=== PATIENT | male | born 1955 | race Caucasian/White ===

== ENCOUNTER 2017-01-18 11:05 | Inpatient (IN) | payer OTHER ==
[2017-01-18] MEDS ORDERED: VANCOMYCIN 1,000 MG in DEXTROSE 5%-WATER - 250 ML IVPB ONE (12:18)
[2017-01-18] MEDS ORDERED: PIPERACILLIN/TAZOB 3.375 GM/50 ML PRE-DOCKED IVPB ONE (12:20)
--- NOTE | 2017-01-18 12:27 | PDOC ---
History of Present Illness - General History Source: Patient, Old Records Exam Limitations: No Limitations - History of Present Illness Initial Comments: 01/18/17 12:39 The patient is a 61-year-old man, accompanied by family, with a significant past medical history of hypercholesterolemia, coronary artery disease status post stent x1,hypothyroidism, borderline diabetes mellitus, osteomyelitis of the left foot who presents to the emergency department via EMS with complaints of bilateral lower extremity pain and weakness. Patient states that his symptoms started out as a small scratch over his right lower extremity that progressively worsened into redness, swelling and draining wounds. Patient states it is difficult to be on his feet and he experiences exquisite pain. He denies experiencing any numbness or tingling sensations upon his legs. No recent fevers, chills. No other complaints. Allergies: No Known Drug Allergies Past Surgical History: Stent placement x1. Social History: No EtOH and recreational drug use. Primary Care Physician: Dr. Francois Rangel [phone] Vascular Surgeon: Dr. Keegan Wallis [phone] <Danuta Valverde - Last Filed: 01/18/17 14:37> <Basim Mendoza - Last Filed: 01/18/17 15:16> - General Chief Complaint: Wound Infection Stated Complaint: Wound Infection Time Seen by Provider: 01/18/17 12:12 Past History <Danuta Valverde - Last Filed: 01/18/17 14:37> - Past Medical History Anemia: No Asthma: No Cancer: No Cardiac Disorders: Yes (stentx 1) CVA: No COPD: No CHF: No Dementia: No Diabetes: Yes (BORDERLINE.) GI Disorders: No Disorders: No HTN: No Hypercholesterolemia: Yes Liver Disease: No Suicide Attempt (Hx): No Seizures: No Thyroid Disease: Yes (HYPO.) - Surgical History Abdominal Surgery: No Appendectomy: No Cardiac Surgery: Yes (STENT X 1.) Cholecystectomy: No Lung Surgery: No Neurologic Surgery: No Orthopedic Surgery: No - Immunization History Immunization Up to Date: Yes - Psycho/Social/Smoking Cessation Hx Anxiety: No Suicidal Ideation: No Smoking Status: No Smoking History: Former smoker Have you smoked in the past 12 months: No Number of Cigarettes Smoked Daily: 0 If you are a former smoker, when did you quit?: 1993 Information on smoking cessation initiated: No Hx Alcohol Use: No Drug/Substance Use Hx: No Substance Use Type: None Hx Substance Use Treatment: No <Basim Mendoza - Last Filed: 01/18/17 15:16> - Past Medical History Allergies/Adverse Reactions: Allergies Allergy/AdvReac Type Severity Reaction Status Date / Time No Known Allergies Allergy Verified 01/18/17 11:34 Home Medications: Ambulatory Orders Aspirin [Ecotrin] 81 mg PO DAILY 01/18/17 Atorvastatin Ca [Lipitor] 40 mg PO HS 01/18/17 Furosemide [Lasix] 40 mg PO DAILY 01/18/17 Levothyroxine [Synthroid -] 50 mcg PO DAILY 01/18/17 Multivitamins [Multivit ([facility] Formul[facility])] 1 tab PO DAILY 01/18/17 Silver Sulfadiazine [Silvadene] 1 applic TP BID 01/18/17 Tramadol HCl 50 mg PO PRN 01/18/17 Review of Systems - Review of Systems Able to Perform ROS?: Yes Comments:: 01/18/17 12:39 GENERAL/CONSTITUTIONAL: No fever or chills. No weakness. HEAD, EYES, EARS, NOSE AND THROAT: No change in vision. No ear pain or discharge. No sore throat. CARDIOVASCULAR: No chest pain or shortness of breath. RESPIRATORY: No cough, wheezing, or hemoptysis. GASTROINTESTINAL: No nausea, vomiting, diarrhea or constipation. GENITOURINARY: No dysuria, frequency, or change in urination. MUSCULOSKELETAL: Yes: Bilateral leg pain. No neck or back pain. SKIN: Yes: Bilateral leg wounds. No rash NEUROLOGIC: Yes: Bilateral leg weakness. No headache, vertigo, loss of consciousness. ENDOCRINE: No increased thirst. No abnormal weight change. HEMATOLOGIC/LYMPHATIC: No anemia, easy bleeding, or history of blood clots. ALLERGIC/IMMUNOLOGIC: No hives or skin allergy. <Danuta Valverde - Last Filed: 01/18/17 14:37> *Physical Exam - Vital Signs Last Vital Signs Temp Pulse Resp BP Pulse Ox 97.9 F 69 18 119/74 96 01/18/17 11:27 01/18/17 11:27 01/18/17 11:27 01/18/17 11:27 01/18/17 11:27 - Physical Exam Comments: 01/18/17 12:39 GENERAL: Awake, alert, and fully oriented, in no acute distress. Obese. HEAD: No signs of trauma EYES: PERRLA, EOMI, sclera anicteric, conjunctiva clear ENT: Auricles normal inspection, hearing grossly normal, nares patent, oropharynx clear without exudates. Moist mucosa NECK: Normal ROM, supple, no lymphadenopathy, JVD, or masses LUNGS: Breath sounds equal, clear to auscultation bilaterally. No wheezes, and no crackles HEART: Regular rate and rhythm, normal S1 and S2, no murmurs, rubs or gallops ABDOMEN: Soft, nontender, normoactive bowel sounds. No guarding, no rebound. No masses EXTREMITIES: Bilateral chronic lymphedema. There is erythema and drainage over the lower extremities right lower extremity worse than left lower extremity, that extends to the right dorsum. Bilateral 3+ pitting edema. Over the left lower extremity, there is a small 2 by 2 cm ulceration with surrounding erythema. NEUROLOGICAL: Cranial nerves II through XII grossly intact. Normal speech. <Danuta Valverde - Last Filed: 01/18/17 14:37> - Vital Signs Last Vital Signs Temp Pulse Resp BP Pulse Ox 97.9 F 69 18 119/74 96 01/18/17 11:27 01/18/17 11:27 01/18/17 11:27 01/18/17 11:27 01/18/17 11:27 <Basim Mendoza - Last Filed: 01/18/17 15:16> Heart Score/ECG Review #1 ECG reviewed & interpreted by me at: 14:15 01/18/17 15:13 NSR 66, no std/rosales, T wave flat avL, left axis deviation QTC 454 msec <Basim Mendoza - Last Filed: 01/18/17 15:16> ED Treatment Course - LABORATORY CBC & Chemistry Diagram: 01/18/17 12:10 01/18/17 12:10 - RADIOLOGY Radiograph Interpretation: 01/18/17 14:12 EXAM: RAD/CHEST X-RAY PORTABLE Interpreted by Dr. Rick Marsh IMPRESSION: A single lordotic seated portable frontal film of the chest reveals a normal sized heart with normal vascularity. The lung otero are clear without evidence of mass or infiltrate. The mediastinal, osseous, and soft tissue structures as visualized are normal. <Danuta Valverde - Last Filed: 01/18/17 14:37> - LABORATORY CBC & Chemistry Diagram: 01/18/17 12:10 01/18/17 12:10 - RADIOLOGY Radiology Studies Ordered: Category Date Time Status CHEST X-RAY PORTABLE* [RAD] Stat Radiology 01/18/17 12:18 Ordered <Basim Mendoza - Last Filed: 01/18/17 15:16> Medical Decision Making - Medical Decision Making 01/18/17 12:42 Case discussed with Vascular Surgeon, Dr. Keegan Wallis. 01/18/17 14:[address] Francois Rangel. Immediate response. Case was discussed. 01/18/17 14:[address] Martine Stephenson. 01/18/17 14:[address] Stephenson. <Danuta Valverde - Last Filed: 01/18/17 14:37> - Medical Decision Making 01/18/17 15:13 A portion of this note was documented by scribe services under my direction. I have reviewed the details of the note, within reason, and agree with the documentation with the following case summary and management plan written by me. Patient treated in the ED. Nursing notes are reviewed and incorporated into the medical decision-making. Vital signs reviewed. Peripheral IV access obtained by the nurse, laboratory studies are drawn and sent, reviewed and interpreted by myself. Vital Signs Temp Pulse Resp BP Pulse Ox 97.9 F 69 18 119/74 96 01/18/17 11:27 01/18/17 11:27 01/18/17 11:27 01/18/17 11:27 01/18/17 11:27 61-year-old male with history of thyroid disorder, coronary disease, lymphedema , obesity and multiple other medical problems presents with bilateral lower extremity cellulitis worse on the right than left for 2 weeks. Patient had hit both physicians. Noticed the redness started increased. Denies fevers or chills. The patient has extensive cellulitis of his anterior shins worse on the right than left. Given the complex issues of lymphedema in addition to difficulty inability secondary to pain, IV anthrax is ordered. Labs reviewed. Case is discussed with Dr. Rangel who agrees with plan for admission. case discussed with Dr. Stephenson who accepts the patient for med/surg admission. Case discussed in detail with admitting physician including history, physical exam and ancillary studies. Admitting physician has assumed care for the patient, will follow all pending diagnostics and will complete the evaluation and treatment. CBC, BMP 01/18/17 12:10 01/18/17 12:10 CMP Sodium 141 mmol/L (136-145) 01/18/17 12:10 Potassium 3.8 mmol/L (3.5-5.1) 01/18/17 12:10 Chloride 99 mmol/L (98-107) 01/18/17 12:10 Carbon Dioxide 33 mmol/L (21-32) H 01/18/17 12:10 Anion Gap 9 (8-16) 01/18/17 12:10 BUN 12 mg/dL (7-18) 01/18/17 12:10 Creatinine 1.3 mg/dL (0.7-1.3) D 01/18/17 12:10 Creat Clearance w eGFR 55.94 (>60) 01/18/17 12:10 Random Glucose 84 mg/dL (74-106) D 01/18/17 12:10 Lactic Acid 1.9 mmol/L (0.4-2.0) 01/18/17 12:10 Calcium 9.5 mg/dL (8.5-10.1) 01/18/17 12:10 Total Bilirubin 1.1 mg/dL (0.2-1.0) H D 01/18/17 12:10 AST 22 U/L (15-37) D 01/18/17 12:10 ALT 29 U/L (12-78) D 01/18/17 12:10 Alkaline Phosphatase 93 U/L (45-117) D 01/18/17 12:10 Creatine Kinase 94 IU/L (39-308) 01/18/17 12:10 Troponin I < 0.02 ng/ml (0.00-0.05) 01/18/17 12:10 C-Reactive Protein 3.1 MG/DL (0.00-0.3) H D 01/18/17 12:10 Total Protein 8.3 g/dl (6.4-8.2) H D 01/18/17 12:10 Albumin 4.0 g/dl (3.4-5.0) D 01/18/17 12:10 01/18/17 15:[address] Wallis who is aware of the patient's case. <Basim Mendoza - Last Filed: 01/18/17 15:16> *DC/Admit/Observation/Transfer - Attestations Scribe Attestion: 01/18/17 12:40 Documentation prepared by Danuta Valverde, acting as manager medical writing for Basim Mendoza MD. <Danuta Valverde - Last Filed: 01/18/17 14:37> - Discharge Dispostion Admit: Yes <Basim Mendoza - Last Filed: 01/18/17 15:16> Diagnosis at time of Disposition: Cellulitis Qualifiers: Site of cellulitis: extremity Site of cellulitis of extremity: lower extremity Laterality: unspecified laterality Qualified Code(s): L03.119 - Cellulitis of unspecified part of limb - Discharge Dispostion Condition at time of disposition: Stable - Referrals Referrals: Francois Rangel MD [Primary Care Provider] -
[2017-01-18 12:43] LABS: BASOPHIL 0.7 % (0-2.0); EOSINOPHIL 2.3 % (0-4.5); MCHC 32.6 g/dl (32.0-35.9); MEAN PLT VOLUME 8.7 fl (7.5-11.1); NEUTROPHILS 75.5 % (42.8-82.8); PLATELET COUNT 170 K/MM3 (134-434); RDW 14.8 % (11.9-15.9); WHITE BLOOD COUNT 9.1 K/mm3 (4.0-10.0)
[2017-01-18] MEDS ORDERED: VANCOMYCIN 1 GRAM (PRE-DOCKED) 250 ML IVPB ONE (12:43)
[2017-01-18] MEDS ORDERED: PIPERACILLIN/TAZOB 3.375 GM 50 ML IVPB ONE (12:44)
[2017-01-18 13:01] LABS: INR 1.12 (0.82-1.09); PROTHROMBIN TIME (PATIENT) 12.4 SEC (9.98-11.88)
[2017-01-18 13:03] LABS: ACTIVATED PTT 26.6 SECONDS (26.9-34.4)
[2017-01-18 13:17] LABS: ANION GAP 9 (8-16); BILIRUBIN,TOTAL 1.1 mg/dL (0.2-1.0); C-REACTIVE PROTEIN 3.1 MG/DL (0.00-0.3); CALCIUM 9.5 mg/dL (8.5-10.1); CO2 33 mmol/L (21-32); CREATININE 1.3 mg/dL (0.7-1.3); GLUCOSE,RANDOM 84 mg/dL (74-106); SGOT/AST 22 U/L (15-37); SGPT/ALT 29 U/L (12-78); TOT PROT 8.3 g/dl (6.4-8.2)
[2017-01-18 13:19] LABS: ALK PHOS 93 U/L (45-117); TROPONIN I < 0.02 ng/ml (0.00-0.05)
[2017-01-18 15:23] LABS: ERYTHROCYTE SEDIMENTATION RATE 56 mm/hr (0-20)
--- NOTE | 2017-01-18 20:23 | CONSULT ---
Consult Consult Specialty:: infectious diseases Reason for Consultation:: cellulitits bilateral - History of Present Illness History of Present Illness: 61-year-old man, , with a significant past medical history of hypercholesterolemia, coronary artery disease status post stent x1, hypothyroidism, borderline diabetes mellitus, osteomyelitis of the left foot who presents to the emergency department with complaints of bilateral lower extremity pain and weakness. Patient states that his symptoms started out as a small scratch over his right lower extremity that progressively worsened into redness, swelling and draining wounds. Patient states it is difficult to be on his feet and he experiences exquisite pain. He denies experiencing any numbness or tingling sensations upon his legs. No recent fevers, chills. No other complaints. patient has had this lymphatic issues since a long time and it seems he was ok with it the pain was pretty severe and that forced the patient to come to the emergency room patient has tried many things on his legs and some have helped and some have not patient currently has pain in the legs - History Source History Provided By: Patient Limitations to Obtaining History: No Limitations - Past Medical History Cardio/Vascular: Yes: CHF, HTN, Hyperlipdemia. No: AFIB, Aneurysm, Aortic Insufficiency, Aortic Stenosis, CAD, Deep Vein Thrombosis, [place], Mitral Insufficiency, Mitral Stenosis, Murmur, Pulmonary Hypertension, Other Endocrine: Yes: Diabetes Mellitus - Alcohol/Substance Use Hx Alcohol Use: No - Smoking History Smoking history: Former smoker Have you smoked in the past 12 months: No Aproximately how many cigarettes per day: 0 If you are a former smoker, when did you quit?: 1993 Home Medications - Allergies Allergies/Adverse Reactions: Allergies Allergy/AdvReac Type Severity Reaction Status Date / Time No Known Allergies Allergy Verified 01/18/17 11:34 - Home Medications Home Medications: Ambulatory Orders Aspirin [Ecotrin] 81 mg PO DAILY 01/18/17 Atorvastatin Ca [Lipitor] 40 mg PO HS 01/18/17 Furosemide [Lasix] 40 mg PO DAILY 01/18/17 Levothyroxine [Synthroid -] 50 mcg PO DAILY 01/18/17 Multivitamins [Multivit ([facility] Formulary)] 1 tab PO DAILY 01/18/17 Silver Sulfadiazine [Silvadene] 1 applic TP BID 01/18/17 Tramadol HCl 50 mg PO PRN 01/18/17 Review of Systems - Review of Systems Constitutional: reports: No Symptoms Eyes: reports: No Symptoms HENT: reports: No Symptoms Neck: reports: No Symptoms Cardiovascular: reports: No Symptoms Respiratory: reports: No Symptoms Gastrointestinal: reports: No Symptoms Musculoskeletal: reports: Other Integumentary: reports: Erythema, Lesions Neurological: reports: No Symptoms Endocrine: reports: No Symptoms Hematology/Lymphatic: reports: No Symptoms Psychiatric: reports: No Symptoms Physical Exam Vital Signs: Vital Signs Temperature 98.3 F 01/18/17 19:55 Pulse Rate 72 01/18/17 19:55 Respiratory Rate 18 01/18/17 19:55 Blood Pressure 124/76 01/18/17 19:55 O2 Sat by Pulse Oximetry (%) 97 01/18/17 19:55 Constitutional: Yes: Well Nourished, Calm, Mild Distress, Obese Eyes: Yes: Conjunctiva Clear HENT: Yes: Atraumatic Neck: Yes: Supple, Trachea Midline Cardiovascular: Yes: Regular Rate and Rhythm Respiratory: Yes: Regular, CTA Bilaterally Gastrointestinal: Yes: Normal Bowel Sounds, Soft Musculoskeletal: Yes: Other Extremities: Yes: Erythema, Other (bilateral lymphatic stasis) Integumentary: Yes: Erythema, Other Wound/Incision: Yes: Open to air, Other (patient has wounds on both legs rt side more than left) Neurological: Yes: Alert, Oriented Psychiatric: Yes: Alert, Oriented Imaging - Results Chest X-ray: Report Reviewed, Image Reviewed Assessment/Plan Bilateral lower ext lymphedema with weeping ulcers. patient with cellulitis of the rt leg open wounds both legs plan will start patient on abx wound care/vascular to see the patient patient has been following up with wound care for some time wound cx ordered will await all the results
[2017-01-18 22:07] LABS: URINE APPEARANCE CLEAR; URINE BILIRUBIN NEGATIVE (NEGATIVE); URINE COLOR YELLOW; URINE GLUCOSE (UA) NEGATIVE (NEGATIVE); URINE KETONE NEGATIVE (NEGATIVE); URINE LEUK ESTERASE NEGATIVE (NEGATIVE); URINE NITRITE NEGATIVE (NEGATIVE); URINE PROTEIN NEGATIVE (NEGATIVE); URINE UROBILINOGEN NEGATIVE E.U./dl (0.2-1.0)
[2017-01-18 22:09] LABS: URINE BLOOD 1+ (NEGATIVE)
[2017-01-18 22:10] LABS: URINE HYALINE CAST 1 /lpf; URINE MUCUS RARE; URINE RBC 2 /hpf (0-3); URINE WBC 1 /hpf (3-5)
[2017-01-19] MEDS ORDERED: traMADol HCL 50 MG TABLET ONE (00:39)
[2017-01-19] MEDS: traMADol HCL 50 MG TABLET PO PRN (00:47)
[2017-01-19] MEDS: PIPERACILLIN/TAZOB 3.375 GM 50 ML IVPB SCH ×3 (02:10→18:18)
[2017-01-19 06:43] LABS: BASOPHIL 0.5 % (0-2.0); EOSINOPHIL 2.6 % (0-4.5); MCH 30.3 pg (25.7-33.7); MCHC 32.8 g/dl (32.0-35.9); MEAN CELL VOLUME 92.3 fl (80-96); MEAN PLT VOLUME 8.9 fl (7.5-11.1); NEUTROPHILS 76.3 % (42.8-82.8); PLATELET COUNT 198 K/MM3 (134-434); RDW 14.4 % (11.9-15.9); WHITE BLOOD COUNT 9.4 K/mm3 (4.0-10.0)
[2017-01-19 07:09] LABS: ALBUMIN 3.7 g/dl (3.4-5.0); ALK PHOS 84 U/L (45-117); ANION GAP 9 (8-16); BILIRUBIN,TOTAL 1.2 mg/dL (0.2-1.0); CALCIUM 9.4 mg/dL (8.5-10.1); CO2 32 mmol/L (21-32); CREATININE 1.2 mg/dL (0.7-1.3); GLUCOSE,RANDOM 80 mg/dL (74-106); SGOT/AST 21 U/L (15-37); SGPT/ALT 27 U/L (12-78); TOT PROT 7.5 g/dl (6.4-8.2)
[2017-01-19] MEDS ORDERED: LEVOTHYROXINE NA 25 MCG TABLET (FP) ONE (08:28)
[2017-01-19] MEDS: LEVOTHYROXINE NA 50 MCG TABLET (FP) PO SCH (08:30)
[2017-01-19] MEDS ORDERED: PIPERACILLIN/TAZOB 3.375 GM 50 ML IVPB ONE (09:39)
[2017-01-19] MEDS: FUROSEMIDE 40 MG TABLET (FP) PO SCH (09:41)
[2017-01-19] MEDS: ASPIRIN COATED 81 MG TABLET.EC PO SCH (09:41)
[2017-01-19] MEDS: ENOXAPARIN NA (PORCINE) 40 MG/0.4 ML DISP.SYRIN SQ SCH (09:41)
[2017-01-19] MEDS: MULTIVITAMINS (DAILY MVI) TABLET (FP) PO SCH (09:42)
[2017-01-19] MEDS: VANCOMYCIN 1,250 MG in DEXTROSE 5%-WATER - 250 ML IVPB SCH (10:06)
--- NOTE | 2017-01-19 12:28 | CONSULT ---
Consult - Past Medical History Cardio/Vascular: Yes: CHF, HTN, Hyperlipdemia. No: AFIB, Aneurysm, Aortic Insufficiency, Aortic Stenosis, CAD, Deep Vein Thrombosis, [place], Mitral Insufficiency, Mitral Stenosis, Murmur, Pulmonary Hypertension, Other Endocrine: Yes: Diabetes Mellitus - Alcohol/Substance Use Hx Alcohol Use: No - Smoking History Smoking history: Former smoker Have you smoked in the past 12 months: No Aproximately how many cigarettes per day: 0 If you are a former smoker, when did you quit?: 1993 Home Medications - Allergies Allergies/Adverse Reactions: Allergies Allergy/AdvReac Type Severity Reaction Status Date / Time No Known Allergies Allergy Verified 01/18/17 11:34 - Home Medications Home Medications: Ambulatory Orders Aspirin [Ecotrin] 81 mg PO DAILY 01/18/17 Atorvastatin Ca [Lipitor] 40 mg PO HS 01/18/17 Furosemide [Lasix] 40 mg PO DAILY 01/18/17 Levothyroxine [Synthroid -] 50 mcg PO DAILY 01/18/17 Multivitamins [Multivit ([facility] Formul[facility])] 1 tab PO DAILY 01/18/17 Silver Sulfadiazine [Silvadene] 1 applic TP BID 01/18/17 Tramadol HCl 50 mg PO PRN 01/18/17 Physical Exam Vital Signs: Vital Signs Temperature 98.2 F 01/19/17 08:38 Pulse Rate 65 01/19/17 08:38 Respiratory Rate 18 01/19/17 08:38 Blood Pressure 119/66 01/19/17 08:38 O2 Sat by Pulse Oximetry (%) 96 01/19/17 08:38 Labs: CBC, BMP 01/19/17 05:35 01/19/17 05:35 Assessment/Plan Vascular Surgery The patient is a 61-year-old man, accompanied by family, with a significant past medical history of hypercholesterolemia, coronary artery disease status post stent x1,hypothyroidism, borderline diabetes mellitus, osteomyelitis of the left foot who presents to the emergency department via EMS with complaints of bilateral lower extremity pain and weakness. Patient states that his symptoms started out as a small scratch over his right lower extremity that progressively worsened into redness, swelling and draining wounds. Patient states it is difficult to be on his feet and he experiences exquisite pain. He denies experiencing any numbness or tingling sensations upon his legs. No recent fevers, chills. No other complaints. Allergies: No Known Drug Allergies Past Surgical History: Stent placement x1. Social History: No EtOH and recreational drug use. PE Head - NC/AT Lung - CTA Heart - RRR abd - soft,nt,nd ext - bl lower ext edema. Ulcers to right and left lower ext with slough, with weeping. A/P Bilateral lower ext lymphedema with weeping ulcers. 1. Santyl to ulcers daily 2. Please wrap legs with ibeth bandages for compression. This will help with the weeping. 3. antibiotics for cellulitis on right lower ext. Keegan Wallis DO
--- NOTE | 2017-01-19 12:44 | HP ---
Admitting History and Physical - Admission History of Present Illness: Pt is a 61 y/o male w/ PMH significant for HLD, CAD (status post stent x1), hypothyroidism, morbid obesity and borderline diabetes mellitus Pt also has a h/ o of osteomyelitis of the left foot who presented to the ER via EMS bc of lower extremity pain and weakness. Pt stated that his symptoms started out as a small scratch over his right lower extremity that progressively worsened into redness , swelling and draining wounds. Pt states it is difficult to be on his feet and he experiences exquisite pain. - Past Medical History Cardiovascular: Yes: Aortic Insufficiency, CAD, CHF, HTN, Hyperlipdemia Endocrine: Yes: Diabetes Mellitus - Past Surgical History Additional Past Surgical History: Cardiac stents - Smoking History Smoking history: Former smoker Have you smoked in the past 12 months: No Aproximately how many cigarettes per day: 0 If you are a former smoker, when did you quit?: 1993 - Alcohol/Substance Use Hx Alcohol Use: No Home Medications - Allergies Allergies/Adverse Reactions: Allergies Allergy/AdvReac Type Severity Reaction Status Date / Time No Known Allergies Allergy Verified 01/18/17 11:34 - Home Medications Home Medications: Ambulatory Orders Aspirin [Ecotrin] 81 mg PO DAILY 01/18/17 Atorvastatin Ca [Lipitor] 40 mg PO HS 01/18/17 Furosemide [Lasix] 40 mg PO DAILY 01/18/17 Levothyroxine [Synthroid -] 50 mcg PO DAILY 01/18/17 Multivitamins [Multivit ([facility] Formul[facility])] 1 tab PO DAILY 01/18/17 Silver Sulfadiazine [Silvadene] 1 applic TP BID 01/18/17 Tramadol HCl 50 mg PO PRN 01/18/17 Family Disease History - Family Disease History Family History: Unremarkable Review of Systems - Review of Systems Constitutional: reports: Weakness Eyes: reports: No Symptoms HENT: reports: No Symptoms Neck: reports: No Symptoms Cardiovascular: reports: No Symptoms Respiratory: reports: No Symptoms Gastrointestinal: reports: No Symptoms Musculoskeletal: reports: Muscle Weakness Physical Examination Vital Signs: Vital Signs Temperature 98.2 F 01/19/17 08:38 Pulse Rate 65 01/19/17 08:38 Respiratory Rate 18 01/19/17 08:38 Blood Pressure 119/66 01/19/17 08:38 O2 Sat by Pulse Oximetry (%) 96 01/19/17 08:38 Constitutional: Yes: Other (Morbidly obese w/ poor hygiene) Eyes: Yes: WNL HENT: Yes: WNL Neck: Yes: Supple Cardiovascular: Yes: WNL, Regular Rate and Rhythm Respiratory: Yes: WNL, Regular, CTA Bilaterally Gastrointestinal: Yes: WNL, Normal Bowel Sounds, Soft, Abdomen, Obese Musculoskeletal: Yes: Other (B/L lower extremitry ulcers/ weeping and erythema of RLE) Edema: LLE: 1+, RLE: 1+ Neurological: Yes: WNL, Alert, Oriented ...Motor Strength: WNL Labs: CBC, BMP 01/19/17 05:35 01/19/17 05:35 Problem List - Problems (1) Cellulitis Assessment/Plan: Cont IV vanco/zosyn As per ID Follow cultures Check dopplers Code(s): L03.90 - CELLULITIS, UNSPECIFIED Qualifiers: Site of cellulitis: extremity Site of cellulitis of extremity: lower extremity Laterality: unspecified laterality Qualified Code(s): L03.119 - Cellulitis of unspecified part of limb (2) Lymphedema Assessment/Plan: Vascular consult Cont lasix Code(s): I89.0 - LYMPHEDEMA, NOT ELSEWHERE CLASSIFIED (3) Diabetes Assessment/Plan: Will check HgA1c Controlled by diet Code(s): E11.9 - TYPE 2 DIABETES MELLITUS WITHOUT COMPLICATIONS (4) Hypothyroid Assessment/Plan: Cont levotyhroxine Check TSH Code(s): E03.9 - HYPOTHYROIDISM, UNSPECIFIED Qualifiers: Hypothyroidism type: other Qualified Code(s): E03.8 - Other specified hypothyroidism; E06.3 - Autoimmune thyroiditis (5) HLD (hyperlipidemia) Assessment/Plan: Cont lipitor Code(s): E78.5 - HYPERLIPIDEMIA, UNSPECIFIED (6) Morbid obesity Code(s): E66.01 - MORBID (SEVERE) OBESITY DUE TO EXCESS CALORIES (7) CAD (coronary atherosclerotic disease) Code(s): I25.10 - ATHSCL HEART DISEASE OF [place] CORONARY ARTERY W/O ANG PCTRS
--- NOTE | 2017-01-19 14:40 | EKG ---
Test Reason : Blood Pressure : / mmHG Vent. Rate : 066 BPM Atrial Rate : 066 BPM P-R Int : 198 ms QRS Dur : 104 ms QT Int : 434 ms P-R-T Axes : 061 -38 039 degrees QTc Int : 454 ms NORMAL SINUS RHYTHM LEFT AXIS DEVIATION ABNORMAL ECG WHEN COMPARED WITH ECG OF 02-MAY-2015 15:42, NO SIGNIFICANT CHANGE WAS FOUND Confirmed by KISHA ASCENCIO MD ([id number]) on 01/19/2017 2:40:37 PM Referred By: Confirmed By:KISHA ASCENCIO MD
[2017-01-19] MEDS: COLLAGENASE CLOSTRIDIUM HIST. 30 GRAMS TUBE TP SCH (14:51)
--- NOTE | 2017-01-19 16:03 | PN ---
Progress Note, Physician History of Present Illness: feels better wound draining legs looking good pain still present - Current Medication List Current Medications: Active Medications Aspirin (Ecotrin -) 81 mg PO DAILY [facility] Last Admin: 01/19/17 09:41 Dose: 81 mg Collagenase (Santyl -) 1 applic TP DAILY [facility] Last Admin: 01/19/17 14:51 Dose: Not Given Enoxaparin Sodium (Lovenox -) 40 mg SQ DAILY [facility] Last Admin: 01/19/17 09:41 Dose: 40 mg Furosemide (Lasix -) 40 mg PO DAILY [facility] Last Admin: 01/19/17 09:41 Dose: 40 mg Vancomycin HCl 1,250 mg/ (Dextrose) 250 mls @ 166.667 mls/hr IVPB DAILY [facility] PRN Reason: Protocol Last Admin: 01/19/17 10:06 Dose: 166.667 mls/hr Piperacillin Sod/Tazobactam Sod (Zosyn 3.375gm Ivpb (Pre-Docked)) 50 mls @ 100 mls/hr IVPB Q8H-IV [facility] PRN Reason: Protocol Last Admin: 01/19/17 09:41 Dose: 100 mls/hr Levothyroxine Sodium (Synthroid -) 50 mcg PO AM [facility] Last Admin: 01/19/17 08:30 Dose: 50 mcg Multivitamins/Minerals/Vitamin C (Tab-A-Vit -) 1 tab PO DAILY [facility] Last Admin: 01/19/17 09:42 Dose: 1 tab Tramadol HCl (Ultram -) 50 mg PO BID PRN Last Admin: 01/19/17 00:47 Dose: 50 mg - Objective Vital Signs: Vital Signs Temperature 98.2 F 01/19/17 08:38 Pulse Rate 65 01/19/17 08:38 Respiratory Rate 18 01/19/17 08:38 Blood Pressure 119/66 01/19/17 08:38 O2 Sat by Pulse Oximetry (%) 96 01/19/17 08:38 Constitutional: Yes: Calm, Mild Distress, Obese Cardiovascular: Yes: Regular Rate and Rhythm Respiratory: Yes: Regular, CTA Bilaterally Gastrointestinal: Yes: Normal Bowel Sounds, Soft Musculoskeletal: Yes: Other Extremities: Yes: Other Neurological: Yes: Alert, Oriented Psychiatric: Yes: Alert, Oriented Labs: CBC, BMP 01/19/17 05:35 06/20/17 05:35 INR, PTT INR 1.12 (0.82-1.09) 01/18/17 12:10 Assessment/Plan Bilateral lower ext lymphedema with weeping ulcers. patient with cellulitis of the rt leg open wounds both legs plan continue abx vascular note noted elevation of the legs monitor
[2017-01-19 16:18] VITALS: BMI 44.1
[2017-01-20] MEDS: traMADol HCL 50 MG TABLET PO PRN ×3 (00:03→22:25)
[2017-01-20] MEDS: PIPERACILLIN/TAZOB 3.375 GM 50 ML IVPB SCH ×3 (02:50→19:07)
[2017-01-20] MEDS: LEVOTHYROXINE NA 50 MCG TABLET (FP) PO SCH (05:59)
[2017-01-20] MEDS: FUROSEMIDE 40 MG TABLET (FP) PO SCH (10:07)
[2017-01-20] MEDS: MULTIVITAMINS (DAILY MVI) TABLET (FP) PO SCH (10:07)
[2017-01-20] MEDS: ASPIRIN COATED 81 MG TABLET.EC PO SCH (10:07)
[2017-01-20] MEDS: ENOXAPARIN NA (PORCINE) 40 MG/0.4 ML DISP.SYRIN SQ SCH (10:07)
[2017-01-20] MEDS: COLLAGENASE CLOSTRIDIUM HIST. 30 GRAMS TUBE TP SCH (10:08)
--- NOTE | 2017-01-20 10:34 | PN ---
Progress Note (short form) - Note Progress Note: Vascular surgery Pt seen and examined. Bilateral lower ext lymphedema with venous stasis. Pt has cellulitis with weeping. Leg elevation. IV antibiotics. Will need ibeth for compression. Keegan Wallis DO
[2017-01-20] MEDS: VANCOMYCIN 1,250 MG in DEXTROSE 5%-WATER - 250 ML IVPB SCH (11:12)
--- NOTE | 2017-01-20 14:23 | PN ---
Progress Note, Physician History of Present Illness: patient doing well no complaints rt leg in dressing all wound cx are pending - Current Medication List Current Medications: Active Medications Aspirin (Ecotrin -) 81 mg PO DAILY [facility] Last Admin: 01/20/17 10:07 Dose: 81 mg Collagenase (Santyl -) 1 applic TP DAILY [facility] Last Admin: 01/20/17 10:08 Dose: 1 applic Enoxaparin Sodium (Lovenox -) 40 mg SQ DAILY [facility] Last Admin: 01/20/17 10:07 Dose: 40 mg Furosemide (Lasix -) 40 mg PO DAILY [facility] Last Admin: 01/20/17 10:07 Dose: 40 mg Vancomycin HCl 1,250 mg/ (Dextrose) 250 mls @ 166.667 mls/hr IVPB DAILY [facility] PRN Reason: Protocol Last Admin: 01/20/17 11:12 Dose: 166.667 mls/hr Piperacillin Sod/Tazobactam Sod (Zosyn 3.375gm Ivpb (Pre-Docked)) 50 mls @ 100 mls/hr IVPB Q8H-IV [facility] PRN Reason: Protocol Last Admin: 01/20/17 10:07 Dose: 100 mls/hr Levothyroxine Sodium (Synthroid -) 50 mcg PO AM [facility] Last Admin: 01/20/17 05:59 Dose: 50 mcg Multivitamins/Minerals/Vitamin C (Tab-A-Vit -) 1 tab PO DAILY [facility] Last Admin: 01/20/17 10:07 Dose: 1 tab Tramadol HCl (Ultram -) 50 mg PO BID PRN Last Admin: 01/20/17 10:07 Dose: 50 mg - Objective Vital Signs: Vital Signs Temperature 98.5 F 01/20/17 09:00 Pulse Rate 78 01/20/17 09:00 Respiratory Rate 20 01/20/17 09:00 Blood Pressure 137/74 01/20/17 09:00 O2 Sat by Pulse Oximetry (%) 96 01/20/17 09:00 Constitutional: Yes: No Distress, Calm, Obese Cardiovascular: Yes: Regular Rate and Rhythm Respiratory: Yes: Regular, CTA Bilaterally Gastrointestinal: Yes: Normal Bowel Sounds, Soft Musculoskeletal: Yes: Other Extremities: Yes: Other Wound/Incision: Yes: Other (rt leg in dressing left leg resolved) Neurological: Yes: Alert, Oriented Psychiatric: Yes: Alert, Oriented Labs: CBC, BMP 01/19/17 05:35 01/19/17 05:35 INR, PTT INR 1.12 (0.82-1.09) 01/18/17 12:10 Assessment/Plan Bilateral lower ext lymphedema with weeping ulcers. patient with cellulitis of the rt leg open wounds both legs plan continue abx wound care await for cx report rest as per primary team
--- NOTE | 2017-01-20 21:22 | PN ---
Progress Note, Physician History of Present Illness: No new complaint - Current Medication List Current Medications: Active Medications Aspirin (Ecotrin -) 81 mg PO DAILY [facility] Last Admin: 01/20/17 10:07 Dose: 81 mg Collagenase (Santyl -) 1 applic TP DAILY [facility] Last Admin: 01/20/17 10:08 Dose: 1 applic Enoxaparin Sodium (Lovenox -) 40 mg SQ DAILY [facility] Last Admin: 01/20/17 10:07 Dose: 40 mg Furosemide (Lasix -) 40 mg PO DAILY [facility] Last Admin: 01/20/17 10:07 Dose: 40 mg Vancomycin HCl 1,250 mg/ (Dextrose) 250 mls @ 166.667 mls/hr IVPB DAILY [facility] PRN Reason: Protocol Last Admin: 01/20/17 11:12 Dose: 166.667 mls/hr Piperacillin Sod/Tazobactam Sod (Zosyn 3.375gm Ivpb (Pre-Docked)) 50 mls @ 100 mls/hr IVPB Q8H-IV [facility] PRN Reason: Protocol Last Admin: 01/20/17 19:07 Dose: 100 mls/hr Levothyroxine Sodium (Synthroid -) 50 mcg PO AM [facility] Last Admin: 01/20/17 05:59 Dose: 50 mcg Multivitamins/Minerals/Vitamin C (Tab-A-Vit -) 1 tab PO DAILY [facility] Last Admin: 01/20/17 10:07 Dose: 1 tab Tramadol HCl (Ultram -) 50 mg PO BID PRN Last Admin: 01/20/17 10:07 Dose: 50 mg - Objective Vital Signs: Vital Signs Temperature 97.6 F 01/20/17 15:46 Pulse Rate 72 01/20/17 15:46 Respiratory Rate 16 01/20/17 15:46 Blood Pressure 112/62 01/20/17 15:46 O2 Sat by Pulse Oximetry (%) 96 01/20/17 09:00 Constitutional: Yes: Well Nourished Eyes: Yes: WNL HENT: Yes: WNL Neck: Yes: Supple Cardiovascular: Yes: WNL, Regular Rate and Rhythm Respiratory: Yes: WNL, Regular, CTA Bilaterally Gastrointestinal: Yes: WNL, Normal Bowel Sounds, Soft, Abdomen, Obese Musculoskeletal: Yes: Other ((+) lymphedema (+) weeping ulcers) Labs: CBC, BMP 01/19/17 05:35 01/19/17 05:35 INR, PTT INR 1.12 (0.82-1.09) 01/18/17 12:10 Problem List - Problems (1) Cellulitis Assessment/Plan: Cont IV vanco/zosyn As per ID Dopplers were negative for DVT Code(s): L03.90 - CELLULITIS, UNSPECIFIED Qualifiers: Site of cellulitis: extremity Site of cellulitis of extremity: lower extremity Laterality: unspecified laterality Qualified Code(s): L03.119 - Cellulitis of unspecified part of limb (2) Lymphedema Assessment/Plan: Cont lasix Code(s): I89.0 - LYMPHEDEMA, NOT ELSEWHERE CLASSIFIED (3) Diabetes Assessment/Plan: Will check HgA1c Controlled by diet Code(s): E11.9 - TYPE 2 DIABETES MELLITUS WITHOUT COMPLICATIONS (4) Hypothyroid Assessment/Plan: Cont levotyhroxine Check TSH Code(s): E03.9 - HYPOTHYROIDISM, UNSPECIFIED Qualifiers: Hypothyroidism type: other Qualified Code(s): E03.8 - Other specified hypothyroidism; E06.3 - Autoimmune thyroiditis (5) HLD (hyperlipidemia) Assessment/Plan: Cont lipitor Code(s): E78.5 - HYPERLIPIDEMIA, UNSPECIFIED (6) Morbid obesity Code(s): E66.01 - MORBID (SEVERE) OBESITY DUE TO EXCESS CALORIES (7) CAD (coronary atherosclerotic disease) Code(s): I25.10 - ATHSCL HEART DISEASE OF [place] CORONARY ARTERY W/O ANG PCTRS
[2017-01-21] MEDS: PIPERACILLIN/TAZOB 3.375 GM 50 ML IVPB SCH ×3 (02:08→17:26)
[2017-01-21] MEDS: LEVOTHYROXINE NA 50 MCG TABLET (FP) PO SCH (06:31)
[2017-01-21 08:17] LABS: BASOPHIL 0.8 % (0-2.0); EOSINOPHIL 4.5 % (0-4.5); MCH 30.6 pg (25.7-33.7); MCHC 33.1 g/dl (32.0-35.9); MEAN CELL VOLUME 92.5 fl (80-96); NEUTROPHILS 68.8 % (42.8-82.8); PLATELET COUNT 193 K/MM3 (134-434); RDW 14.8 % (11.9-15.9); WHITE BLOOD COUNT 7.8 K/mm3 (4.0-10.0)
[2017-01-21 08:46] LABS: ALBUMIN 3.6 g/dl (3.4-5.0); ALK PHOS 75 U/L (45-117); ANION GAP 7 (8-16); BILIRUBIN,TOTAL 0.9 mg/dL (0.2-1.0); CALCIUM 9.4 mg/dL (8.5-10.1); CO2 34 mmol/L (21-32); CREATININE 1.1 mg/dL (0.7-1.3); GLUCOSE,RANDOM 87 mg/dL (74-106); SGOT/AST 18 U/L (15-37); SGPT/ALT 30 U/L (12-78); TOT PROT 7.2 g/dl (6.4-8.2)
[2017-01-21 09:01] LABS: THYROID STIMULATING HORMONE 2.26 uIU/ml (0.358-3.74)
[2017-01-21] MEDS: COLLAGENASE CLOSTRIDIUM HIST. 30 GRAMS TUBE TP SCH (09:49)
[2017-01-21] MEDS: FUROSEMIDE 40 MG TABLET (FP) PO SCH (09:50)
[2017-01-21] MEDS: ASPIRIN COATED 81 MG TABLET.EC PO SCH (09:50)
[2017-01-21] MEDS: ENOXAPARIN NA (PORCINE) 40 MG/0.4 ML DISP.SYRIN SQ SCH (09:50)
[2017-01-21] MEDS: MULTIVITAMINS (DAILY MVI) TABLET (FP) PO SCH (09:50)
[2017-01-21] MEDS: VANCOMYCIN 1,250 MG in DEXTROSE 5%-WATER - 250 ML IVPB SCH (10:36)
--- NOTE | 2017-01-21 14:06 | PN ---
Progress Note, Physician History of Present Illness: patient says he is feeling well left leg is doing pretty well rt leg oozing a lot - Current Medication List Current Medications: Active Medications Aspirin (Ecotrin -) 81 mg PO DAILY [facility] Last Admin: 01/21/17 09:50 Dose: 81 mg Collagenase (Santyl -) 1 applic TP DAILY [facility] Last Admin: 01/21/17 09:49 Dose: 1 applic Enoxaparin Sodium (Lovenox -) 40 mg SQ DAILY [facility] Last Admin: 01/21/17 09:50 Dose: 40 mg Furosemide (Lasix -) 40 mg PO DAILY [facility] Last Admin: 01/21/17 09:50 Dose: 40 mg Piperacillin Sod/Tazobactam Sod (Zosyn 3.375gm Ivpb (Pre-Docked)) 50 mls @ 100 mls/hr IVPB Q8H-IV [facility] PRN Reason: Protocol Last Admin: 01/21/17 09:50 Dose: 100 mls/hr Levothyroxine Sodium (Synthroid -) 50 mcg PO AM [facility] Last Admin: 01/21/17 06:31 Dose: 50 mcg Multivitamins/Minerals/Vitamin C (Tab-A-Vit -) 1 tab PO DAILY [facility] Last Admin: 01/21/17 09:50 Dose: 1 tab Tramadol HCl (Ultram -) 50 mg PO BID PRN Last Admin: 01/20/17 22:25 Dose: 50 mg - Objective Vital Signs: Vital Signs Temperature 97.6 F 01/21/17 08:48 Pulse Rate 64 01/21/17 08:48 Respiratory Rate 20 01/21/17 08:48 Blood Pressure 106/62 01/21/17 08:48 O2 Sat by Pulse Oximetry (%) 97 01/21/17 09:00 Constitutional: Yes: No Distress, Calm, Obese HENT: Yes: Atraumatic Neck: Yes: Supple, Trachea Midline Cardiovascular: Yes: Regular Rate and Rhythm Respiratory: Yes: Regular, CTA Bilaterally Gastrointestinal: Yes: Normal Bowel Sounds, Soft Musculoskeletal: Yes: Other Extremities: Yes: Other (rt leg still oozing a lot) Wound/Incision: Yes: Draining (rt leg) Neurological: Yes: Alert, Oriented Labs: CBC, BMP 01/21/17 07:00 01/21/17 07:00 INR, PTT INR 1.12 (0.82-1.09) 01/18/17 12:10 Assessment/Plan Bilateral lower ext lymphedema with weeping ulcers. patient with cellulitis of the rt leg open wounds both legs plan continue abx vanco trough noted dose increased wound care
[2017-01-21] MEDS ORDERED: VANCOMYCIN 1,500 MG in DEXTROSE 5%-WATER - 250 ML IVPB SCH (14:45)
--- NOTE | 2017-01-22 00:50 | PN ---
Progress Note, Physician History of Present Illness: Pt seen and examined 01/21/17 however note is being entered now - Current Medication List Current Medications: Active Medications Aspirin (Ecotrin -) 81 mg PO DAILY [facility] Last Admin: 01/21/17 09:50 Dose: 81 mg Collagenase (Santyl -) 1 applic TP DAILY [facility] Last Admin: 01/21/17 09:49 Dose: 1 applic Enoxaparin Sodium (Lovenox -) 40 mg SQ DAILY [facility] Last Admin: 01/21/17 09:50 Dose: 40 mg Furosemide (Lasix -) 40 mg PO DAILY [facility] Last Admin: 01/21/17 09:50 Dose: 40 mg Piperacillin Sod/Tazobactam Sod (Zosyn 3.375gm Ivpb (Pre-Docked)) 50 mls @ 100 mls/hr IVPB Q8H-IV [facility] PRN Reason: Protocol Last Admin: 01/21/17 17:26 Dose: 100 mls/hr Vancomycin HCl 1,500 mg/ (Dextrose) 250 mls @ 125 mls/hr IVPB DAILY [facility] PRN Reason: Protocol Last Admin: 01/21/17 14:53 Dose: Not Given Levothyroxine Sodium (Synthroid -) 50 mcg PO AM [facility] Last Admin: 01/21/17 06:31 Dose: 50 mcg Multivitamins/Minerals/Vitamin C (Tab-A-Vit -) 1 tab PO DAILY [facility] Last Admin: 01/21/17 09:50 Dose: 1 tab Tramadol HCl (Ultram -) 50 mg PO BID PRN Last Admin: 01/20/17 22:25 Dose: 50 mg - Objective Vital Signs: Vital Signs Temperature 97.8 F 01/21/17 16:40 Pulse Rate 62 01/21/17 16:40 Respiratory Rate 20 01/21/17 16:40 Blood Pressure 131/77 01/21/17 16:40 O2 Sat by Pulse Oximetry (%) 97 01/21/17 21:00 Constitutional: Yes: Well Nourished Eyes: Yes: WNL HENT: Yes: WNL Neck: Yes: WNL, Supple Cardiovascular: Yes: WNL, Regular Rate and Rhythm Respiratory: Yes: WNL, CTA Bilaterally Gastrointestinal: Yes: WNL, Normal Bowel Sounds, Soft, Abdomen, Obese Extremities: Yes: Other Edema: LLE: 1+, RLE: 1+ Labs: CBC, BMP 01/21/17 07:00 01/21/17 07:00 INR, PTT INR 1.12 (0.82-1.09) 01/18/17 12:10 Problem List - Problems (1) Cellulitis Code(s): L03.90 - CELLULITIS, UNSPECIFIED Qualifiers: Site of cellulitis: extremity Site of cellulitis of extremity: lower extremity Laterality: unspecified laterality Qualified Code(s): L03.119 - Cellulitis of unspecified part of limb (2) Lymphedema Code(s): I89.0 - LYMPHEDEMA, NOT ELSEWHERE CLASSIFIED (3) Diabetes Code(s): E11.9 - TYPE 2 DIABETES MELLITUS WITHOUT COMPLICATIONS (4) Hypothyroid Code(s): E03.9 - HYPOTHYROIDISM, UNSPECIFIED Qualifiers: Hypothyroidism type: other Qualified Code(s): E03.8 - Other specified hypothyroidism; E06.3 - Autoimmune thyroiditis (5) HLD (hyperlipidemia) Code(s): E78.5 - HYPERLIPIDEMIA, UNSPECIFIED (6) Morbid obesity Code(s): E66.01 - MORBID (SEVERE) OBESITY DUE TO EXCESS CALORIES (7) CAD (coronary atherosclerotic disease) Code(s): I25.10 - ATHSCL HEART DISEASE OF [place] CORONARY ARTERY W/O ANG PCTRS
[2017-01-22] MEDS: PIPERACILLIN/TAZOB 3.375 GM 50 ML IVPB SCH ×3 (01:15→18:17)
[2017-01-22] MEDS: LEVOTHYROXINE NA 50 MCG TABLET (FP) PO SCH (06:20)
[2017-01-22] MEDS ORDERED: VANCOMYCIN 1,500 MG in DEXTROSE 5%-WATER - 500 ML IVPB SCH (08:34)
[2017-01-22] MEDS: MULTIVITAMINS (DAILY MVI) TABLET (FP) PO SCH (09:45)
[2017-01-22] MEDS: FUROSEMIDE 40 MG TABLET (FP) PO SCH (09:45)
[2017-01-22] MEDS: ASPIRIN COATED 81 MG TABLET.EC PO SCH (09:45)
[2017-01-22] MEDS: COLLAGENASE CLOSTRIDIUM HIST. 30 GRAMS TUBE TP SCH (09:46)
[2017-01-22] MEDS: ENOXAPARIN NA (PORCINE) 40 MG/0.4 ML DISP.SYRIN SQ SCH (09:47)
--- NOTE | 2017-01-22 14:05 | PN ---
Progress Note, Physician History of Present Illness: patient says he is feeling well left leg improving rt leg oozing but improving - Current Medication List Current Medications: Active Medications Aspirin (Ecotrin -) 81 mg PO DAILY [facility] Last Admin: 01/22/17 09:45 Dose: 81 mg Collagenase (Santyl -) 1 applic TP DAILY [facility] Last Admin: 01/22/17 09:46 Dose: 1 applic Enoxaparin Sodium (Lovenox -) 40 mg SQ DAILY [facility] Last Admin: 01/22/17 09:47 Dose: 40 mg Furosemide (Lasix -) 40 mg PO DAILY [facility] Last Admin: 01/22/17 09:45 Dose: 40 mg Piperacillin Sod/Tazobactam Sod (Zosyn 3.375gm Ivpb (Pre-Docked)) 50 mls @ 100 mls/hr IVPB Q8H-IV [facility] PRN Reason: Protocol Last Admin: 01/22/17 09:44 Dose: 100 mls/hr Levothyroxine Sodium (Synthroid -) 50 mcg PO AM [facility] Last Admin: 01/22/17 06:20 Dose: 50 mcg Multivitamins/Minerals/Vitamin C (Tab-A-Vit -) 1 tab PO DAILY [facility] Last Admin: 01/22/17 09:45 Dose: 1 tab - Objective Vital Signs: Vital Signs Temperature 97.5 F L 01/22/17 06:07 Pulse Rate 67 01/22/17 06:07 Respiratory Rate 18 01/22/17 06:07 Blood Pressure 108/66 01/22/17 06:07 O2 Sat by Pulse Oximetry (%) 97 01/21/17 21:00 Constitutional: Yes: No Distress, Calm, Obese Cardiovascular: Yes: Regular Rate and Rhythm Respiratory: Yes: Regular, CTA Bilaterally Gastrointestinal: Yes: Normal Bowel Sounds, Soft Musculoskeletal: Yes: Other Extremities: Yes: Other Integumentary: Yes: Erythema, Other Wound/Incision: Yes: Dressing Dry and Intact Neurological: Yes: Alert, Oriented Psychiatric: Yes: Alert Labs: CBC, BMP 01/21/17 07:00 01/21/17 07:00 INR, PTT INR 1.12 (0.82-1.09) 01/18/17 12:10 Assessment/Plan Bilateral lower ext lymphedema with weeping ulcers. patient with cellulitis of the rt leg open wounds both legs plan continue abx will stop vanco await for missing organism wound care
[2017-01-23] MEDS: PIPERACILLIN/TAZOB 3.375 GM 50 ML IVPB SCH ×3 (01:20→17:07)
[2017-01-23] MEDS: LEVOTHYROXINE NA 50 MCG TABLET (FP) PO SCH (06:12)
[2017-01-23] MEDS: FUROSEMIDE 40 MG TABLET (FP) PO SCH (10:33)
[2017-01-23] MEDS: ASPIRIN COATED 81 MG TABLET.EC PO SCH (10:33)
[2017-01-23] MEDS: MULTIVITAMINS (DAILY MVI) TABLET (FP) PO SCH (10:33)
[2017-01-23] MEDS: ENOXAPARIN NA (PORCINE) 40 MG/0.4 ML DISP.SYRIN SQ SCH (10:34)
[2017-01-23] MEDS: COLLAGENASE CLOSTRIDIUM HIST. 30 GRAMS TUBE TP SCH (10:34)
--- NOTE | 2017-01-23 13:18 | PN ---
Progress Note, Physician History of Present Illness: doing well no new events - Current Medication List Current Medications: Active Medications Aspirin (Ecotrin -) 81 mg PO DAILY [facility] Last Admin: 01/23/17 10:33 Dose: 81 mg Collagenase (Santyl -) 1 applic TP DAILY [facility] Last Admin: 01/23/17 10:34 Dose: 1 applic Enoxaparin Sodium (Lovenox -) 40 mg SQ DAILY [facility] Last Admin: 01/23/17 10:34 Dose: 40 mg Furosemide (Lasix -) 40 mg PO DAILY [facility] Last Admin: 01/23/17 10:33 Dose: 40 mg Piperacillin Sod/Tazobactam Sod (Zosyn 3.375gm Ivpb (Pre-Docked)) 50 mls @ 100 mls/hr IVPB Q8H-IV [facility] PRN Reason: Protocol Last Admin: 01/23/17 10:35 Dose: 100 mls/hr Levothyroxine Sodium (Synthroid -) 50 mcg PO AM [facility] Last Admin: 01/23/17 06:12 Dose: 50 mcg Multivitamins/Minerals/Vitamin C (Tab-A-Vit -) 1 tab PO DAILY [facility] Last Admin: 01/23/17 10:33 Dose: 1 tab - Objective Vital Signs: Vital Signs Temperature 99.3 F 01/23/17 06:00 Pulse Rate 74 01/23/17 06:00 Respiratory Rate 18 01/23/17 06:00 Blood Pressure 158/75 01/23/17 06:00 O2 Sat by Pulse Oximetry (%) 97 01/22/17 21:00 Constitutional: Yes: No Distress, Calm, Obese Cardiovascular: Yes: Regular Rate and Rhythm Respiratory: Yes: Regular, CTA Bilaterally Gastrointestinal: Yes: Normal Bowel Sounds, Soft Musculoskeletal: Yes: Other Extremities: Yes: Other Edema: LLE: 1+, RLE: 1+ Wound/Incision: Yes: Dressing Dry and Intact Neurological: Yes: Alert, Oriented Psychiatric: Yes: Alert, Oriented Labs: CBC, BMP 01/21/17 07:00 01/21/17 07:00 INR, PTT INR 1.12 (0.82-1.09) 01/18/17 12:10 Assessment/Plan Bilateral lower ext lymphedema with weeping ulcers. patient with cellulitis of the rt leg open wounds both legs plan continue abx continue wound care rest as per primary team will have to arrange abx for couple of more days
--- NOTE | 2017-01-24 01:16 | PN ---
Progress Note, Physician History of Present Illness: Pt seen and examined 01/23/17 however note is being entered late - Current Medication List Current Medications: Active Medications Aspirin (Ecotrin -) 81 mg PO DAILY [facility] Last Admin: 01/23/17 10:33 Dose: 81 mg Collagenase (Santyl -) 1 applic TP DAILY [facility] Last Admin: 01/23/17 10:34 Dose: 1 applic Enoxaparin Sodium (Lovenox -) 40 mg SQ DAILY [facility] Last Admin: 01/23/17 10:34 Dose: 40 mg Furosemide (Lasix -) 40 mg PO DAILY [facility] Last Admin: 01/23/17 10:33 Dose: 40 mg Piperacillin Sod/Tazobactam Sod (Zosyn 3.375gm Ivpb (Pre-Docked)) 50 mls @ 100 mls/hr IVPB Q8H-IV [facility] PRN Reason: Protocol Last Admin: 01/23/17 17:07 Dose: 100 mls/hr Levothyroxine Sodium (Synthroid -) 50 mcg PO AM [facility] Last Admin: 01/23/17 06:12 Dose: 50 mcg Multivitamins/Minerals/Vitamin C (Tab-A-Vit -) 1 tab PO DAILY [facility] Last Admin: 01/23/17 10:33 Dose: 1 tab - Objective Vital Signs: Vital Signs Temperature 97.9 F 01/23/17 17:20 Pulse Rate 68 01/23/17 17:20 Respiratory Rate 20 01/23/17 17:20 Blood Pressure 116/68 01/23/17 17:20 O2 Sat by Pulse Oximetry (%) 98 01/23/17 21:00 Constitutional: Yes: Well Nourished Eyes: Yes: WNL HENT: Yes: WNL Neck: Yes: Supple Cardiovascular: Yes: WNL, Regular Rate and Rhythm Respiratory: Yes: WNL, Regular, CTA Bilaterally Gastrointestinal: Yes: WNL, Normal Bowel Sounds, Soft, Abdomen, Obese Edema: LLE: 1+, RLE: 1+ Labs: CBC, BMP 01/21/17 07:00 01/21/17 07:00 INR, PTT INR 1.12 (0.82-1.09) 01/18/17 12:10 Problem List - Problems (1) Cellulitis Assessment/Plan: Cont IV vanco/zosyn Cont wound care Code(s): L03.90 - CELLULITIS, UNSPECIFIED Qualifiers: Site of cellulitis: extremity Site of cellulitis of extremity: lower extremity Laterality: unspecified laterality Qualified Code(s): L03.119 - Cellulitis of unspecified part of limb (2) Lymphedema Assessment/Plan: Cont lasix Code(s): I89.0 - LYMPHEDEMA, NOT ELSEWHERE CLASSIFIED (3) Diabetes Assessment/Plan: Will check HgA1c Controlled by diet Code(s): E11.9 - TYPE 2 DIABETES MELLITUS WITHOUT COMPLICATIONS (4) Hypothyroid Code(s): E03.9 - HYPOTHYROIDISM, UNSPECIFIED Qualifiers: Hypothyroidism type: other Qualified Code(s): E03.8 - Other specified hypothyroidism; E06.3 - Autoimmune thyroiditis (5) HLD (hyperlipidemia) Code(s): E78.5 - HYPERLIPIDEMIA, UNSPECIFIED (6) Morbid obesity Code(s): E66.01 - MORBID (SEVERE) OBESITY DUE TO EXCESS CALORIES (7) CAD (coronary atherosclerotic disease) Code(s): I25.10 - ATHSCL HEART DISEASE OF [place] CORONARY ARTERY W/O ANG PCTRS
[2017-01-24] MEDS: PIPERACILLIN/TAZOB 3.375 GM 50 ML IVPB SCH ×3 (01:18→17:40)
[2017-01-24] MEDS: LEVOTHYROXINE NA 50 MCG TABLET (FP) PO SCH (06:05)
[2017-01-24] MEDS: MULTIVITAMINS (DAILY MVI) TABLET (FP) PO SCH (10:09)
[2017-01-24] MEDS: ASPIRIN COATED 81 MG TABLET.EC PO SCH (10:09)
[2017-01-24] MEDS: ENOXAPARIN NA (PORCINE) 40 MG/0.4 ML DISP.SYRIN SQ SCH (10:09)
[2017-01-24] MEDS: FUROSEMIDE 40 MG TABLET (FP) PO SCH (10:09)
[2017-01-24] MEDS: COLLAGENASE CLOSTRIDIUM HIST. 30 GRAMS TUBE TP SCH (14:00)
--- NOTE | 2017-01-24 21:06 | PN ---
Progress Note, Physician History of Present Illness: No new changes - Current Medication List Current Medications: Active Medications Aspirin (Ecotrin -) 81 mg PO DAILY [facility] Last Admin: 01/24/17 10:09 Dose: 81 mg Collagenase (Santyl -) 1 applic TP DAILY [facility] Last Admin: 01/24/17 14:00 Dose: 1 applic Enoxaparin Sodium (Lovenox -) 40 mg SQ DAILY [facility] Last Admin: 01/24/17 10:09 Dose: 40 mg Furosemide (Lasix -) 40 mg PO DAILY [facility] Last Admin: 01/24/17 10:09 Dose: 40 mg Piperacillin Sod/Tazobactam Sod (Zosyn 3.375gm Ivpb (Pre-Docked)) 50 mls @ 100 mls/hr IVPB Q8H-IV [facility] PRN Reason: Protocol Last Admin: 01/24/17 17:40 Dose: 100 mls/hr Levothyroxine Sodium (Synthroid -) 50 mcg PO AM [facility] Last Admin: 01/24/17 06:05 Dose: 50 mcg Multivitamins/Minerals/Vitamin C (Tab-A-Vit -) 1 tab PO DAILY [facility] Last Admin: 01/24/17 10:09 Dose: 1 tab - Objective Vital Signs: Vital Signs Temperature 97.3 F L 01/24/17 17:25 Pulse Rate 69 01/24/17 17:25 Respiratory Rate 20 01/24/17 17:25 Blood Pressure 126/70 01/24/17 17:25 O2 Sat by Pulse Oximetry (%) 97 01/24/17 20:31 Constitutional: Yes: Well Nourished Eyes: Yes: WNL HENT: Yes: WNL Neck: Yes: WNL, Supple Cardiovascular: Yes: WNL, Regular Rate and Rhythm Respiratory: Yes: WNL, Regular, CTA Bilaterally Gastrointestinal: Yes: WNL, Normal Bowel Sounds, Soft, Abdomen, Obese Edema: LLE: 1+, RLE: 1+ Labs: CBC, BMP 01/21/17 07:00 01/21/17 07:00 INR, PTT INR 1.12 (0.82-1.09) 01/18/17 12:10 Problem List - Problems (1) Cellulitis Assessment/Plan: Cont IV vanco/zosyn Cont wound care DC planning in am to STR Will speak to ID about antibxs Code(s): L03.90 - CELLULITIS, UNSPECIFIED Qualifiers: Site of cellulitis: extremity Site of cellulitis of extremity: lower extremity Laterality: unspecified laterality Qualified Code(s): L03.119 - Cellulitis of unspecified part of limb (2) Lymphedema Assessment/Plan: Cont lasix Code(s): I89.0 - LYMPHEDEMA, NOT ELSEWHERE CLASSIFIED (3) Diabetes Assessment/Plan: HgA1c was normal Controlled by diet Code(s): E11.9 - TYPE 2 DIABETES MELLITUS WITHOUT COMPLICATIONS (4) Hypothyroid Assessment/Plan: Cont levotyhroxine Code(s): E03.9 - HYPOTHYROIDISM, UNSPECIFIED Qualifiers: Hypothyroidism type: other Qualified Code(s): E03.8 - Other specified hypothyroidism; E06.3 - Autoimmune thyroiditis (5) HLD (hyperlipidemia) Code(s): E78.5 - HYPERLIPIDEMIA, UNSPECIFIED (6) Morbid obesity Code(s): E66.01 - MORBID (SEVERE) OBESITY DUE TO EXCESS CALORIES (7) CAD (coronary atherosclerotic disease) Code(s): I25.10 - ATHSCL HEART DISEASE OF [place] CORONARY ARTERY W/O ANG PCTRS
[2017-01-25] MEDS: PIPERACILLIN/TAZOB 3.375 GM 50 ML IVPB SCH ×3 (02:21→18:27)
[2017-01-25] MEDS: LEVOTHYROXINE NA 50 MCG TABLET (FP) PO SCH (06:13)
[2017-01-25] MEDS: FUROSEMIDE 40 MG TABLET (FP) PO SCH (10:52)
[2017-01-25] MEDS: MULTIVITAMINS (DAILY MVI) TABLET (FP) PO SCH (10:52)
[2017-01-25] MEDS: ENOXAPARIN NA (PORCINE) 40 MG/0.4 ML DISP.SYRIN SQ SCH (10:53)
[2017-01-25] MEDS: ASPIRIN COATED 81 MG TABLET.EC PO SCH (10:53)
--- NOTE | 2017-01-25 11:39 | PN ---
Progress Note, Physician History of Present Illness: patient doing well rt leg healing but still draining left leg has healed well wound on rt leg healing - Current Medication List Current Medications: Active Medications Aspirin (Ecotrin -) 81 mg PO DAILY [facility] Last Admin: 01/25/17 10:53 Dose: 81 mg Collagenase (Santyl -) 1 applic TP DAILY [facility] Last Admin: 01/24/17 14:00 Dose: 1 applic Enoxaparin Sodium (Lovenox -) 40 mg SQ DAILY [facility] Last Admin: 01/25/17 10:53 Dose: 40 mg Furosemide (Lasix -) 40 mg PO DAILY [facility] Last Admin: 01/25/17 10:52 Dose: 40 mg Piperacillin Sod/Tazobactam Sod (Zosyn 3.375gm Ivpb (Pre-Docked)) 50 mls @ 100 mls/hr IVPB Q8H-IV [facility] PRN Reason: Protocol Last Admin: 01/25/17 10:52 Dose: 100 mls/hr Levothyroxine Sodium (Synthroid -) 50 mcg PO AM [facility] Last Admin: 01/25/17 06:13 Dose: 50 mcg Multivitamins/Minerals/Vitamin C (Tab-A-Vit -) 1 tab PO DAILY [facility] Last Admin: 01/25/17 10:52 Dose: 1 tab - Objective Vital Signs: Vital Signs Temperature 98.0 F 01/25/17 06:00 Pulse Rate 65 01/25/17 06:00 Respiratory Rate 18 01/25/17 06:00 Blood Pressure 108/54 01/25/17 06:00 O2 Sat by Pulse Oximetry (%) 97 01/24/17 20:31 Constitutional: Yes: No Distress, Calm Cardiovascular: Yes: Regular Rate and Rhythm Respiratory: Yes: Regular, CTA Bilaterally Gastrointestinal: Yes: Normal Bowel Sounds, Soft Musculoskeletal: Yes: Other Extremities: Yes: Other (rt leg still draianing left leg much better) Integumentary: Yes: Erythema, Other Wound/Incision: Yes: Dressing Removed, Other (wounds looked at) Psychiatric: Yes: Alert, Oriented Labs: CBC, BMP 01/21/17 07:00 01/21/17 07:00 INR, PTT INR 1.12 (0.82-1.09) 01/18/17 12:10 Assessment/Plan Bilateral lower ext lymphedema with weeping ulcers. patient with cellulitis of the rt leg open wounds both legs plan continue abx continue wound care patient will need at least another 7 days of abx depending on how the healing progresses
[2017-01-25] MEDS: COLLAGENASE CLOSTRIDIUM HIST. 30 GRAMS TUBE TP SCH (12:41)
--- NOTE | 2017-01-25 20:08 | PN ---
Progress Note, Physician History of Present Illness: Pt still has weeping - Current Medication List Current Medications: Active Medications Aspirin (Ecotrin -) 81 mg PO DAILY [facility] Last Admin: 01/25/17 10:53 Dose: 81 mg Collagenase (Santyl -) 1 applic TP DAILY [facility] Last Admin: 01/25/17 12:41 Dose: 1 applic Enoxaparin Sodium (Lovenox -) 40 mg SQ DAILY [facility] Last Admin: 01/25/17 10:53 Dose: 40 mg Furosemide (Lasix -) 40 mg PO DAILY [facility] Last Admin: 01/25/17 10:52 Dose: 40 mg Piperacillin Sod/Tazobactam Sod (Zosyn 3.375gm Ivpb (Pre-Docked)) 50 mls @ 100 mls/hr IVPB Q8H-IV [facility] PRN Reason: Protocol Last Admin: 01/25/17 18:27 Dose: 100 mls/hr Levothyroxine Sodium (Synthroid -) 50 mcg PO AM [facility] Last Admin: 01/25/17 06:13 Dose: 50 mcg Multivitamins/Minerals/Vitamin C (Tab-A-Vit -) 1 tab PO DAILY [facility] Last Admin: 01/25/17 10:52 Dose: 1 tab - Objective Vital Signs: Vital Signs Temperature 98.4 F 01/25/17 16:20 Pulse Rate 70 01/25/17 16:20 Respiratory Rate 20 01/25/17 16:20 Blood Pressure 112/64 01/25/17 16:20 O2 Sat by Pulse Oximetry (%) 97 01/25/17 09:00 Constitutional: Yes: Well Nourished Eyes: Yes: WNL HENT: Yes: WNL Neck: Yes: WNL, Supple Cardiovascular: Yes: WNL, Regular Rate and Rhythm Respiratory: Yes: WNL, Regular, CTA Bilaterally Gastrointestinal: Yes: WNL, Normal Bowel Sounds, Soft, Abdomen, Obese Extremities: Yes: Other ((+) b/l erythema w/ weeping) Edema: LLE: 1+, RLE: 1+ Labs: CBC, BMP 01/21/17 07:00 01/21/17 07:00 INR, PTT INR 1.12 (0.82-1.09) 01/18/17 12:10 Problem List - Problems (1) Cellulitis Assessment/Plan: Cont IV vanco/zosyn Cont wound care Wound cultures w/ multiple organisms Code(s): L03.90 - CELLULITIS, UNSPECIFIED Qualifiers: Site of cellulitis: extremity Site of cellulitis of extremity: lower extremity Laterality: unspecified laterality Qualified Code(s): L03.119 - Cellulitis of unspecified part of limb (2) Lymphedema Assessment/Plan: Cont lasix Code(s): I89.0 - LYMPHEDEMA, NOT ELSEWHERE CLASSIFIED (3) Diabetes Assessment/Plan: HgA1c was normal Controlled by diet Code(s): E11.9 - TYPE 2 DIABETES MELLITUS WITHOUT COMPLICATIONS (4) Hypothyroid Assessment/Plan: Cont levotyhroxine Code(s): E03.9 - HYPOTHYROIDISM, UNSPECIFIED Qualifiers: Hypothyroidism type: other Qualified Code(s): E03.8 - Other specified hypothyroidism; E06.3 - Autoimmune thyroiditis (5) HLD (hyperlipidemia) Assessment/Plan: Cont lipitor Code(s): E78.5 - HYPERLIPIDEMIA, UNSPECIFIED (6) Morbid obesity Code(s): E66.01 - MORBID (SEVERE) OBESITY DUE TO EXCESS CALORIES (7) CAD (coronary atherosclerotic disease) Code(s): I25.10 - ATHSCL HEART DISEASE OF [place] CORONARY ARTERY W/O ANG PCTRS
[2017-01-25] MEDS: ATORVASTATIN CA 40 MG TABLET (FP) PO SCH (22:03)
[2017-01-26] MEDS: PIPERACILLIN/TAZOB 3.375 GM 50 ML IVPB SCH ×3 (01:32→18:29)
[2017-01-26] MEDS: LEVOTHYROXINE NA 50 MCG TABLET (FP) PO SCH (06:27)
[2017-01-26 07:59] LABS: BASOPHIL 0.7 % (0-2.0); MCH 30.6 pg (25.7-33.7); MCHC 32.9 g/dl (32.0-35.9); MEAN CELL VOLUME 92.9 fl (80-96); MEAN PLT VOLUME 8.8 fl (7.5-11.1); NEUTROPHILS 74.3 % (42.8-82.8); PLATELET COUNT 184 K/MM3 (134-434); RDW 14.7 % (11.9-15.9); WHITE BLOOD COUNT 8.8 K/mm3 (4.0-10.0)
[2017-01-26 08:27] LABS: ALBUMIN 3.5 g/dl (3.4-5.0); ANION GAP 8 (8-16); CALCIUM 9.3 mg/dL (8.5-10.1); CO2 33 mmol/L (21-32); GLUCOSE,RANDOM 92 mg/dL (74-106)
[2017-01-26 08:31] LABS: ALK PHOS 77 U/L (45-117); BILIRUBIN,TOTAL 0.8 mg/dL (0.2-1.0); CREATININE 1.1 mg/dL (0.7-1.3); SGOT/AST 23 U/L (15-37); SGPT/ALT 41 U/L (12-78); TOT PROT 7.3 g/dl (6.4-8.2)
[2017-01-26] MEDS ORDERED: PT OWN MED DRAWER 7, Y5N ONE (09:49)
[2017-01-26] MEDS: FUROSEMIDE 40 MG TABLET (FP) PO SCH (09:57)
[2017-01-26] MEDS: ASPIRIN COATED 81 MG TABLET.EC PO SCH (09:57)
[2017-01-26] MEDS: COLLAGENASE CLOSTRIDIUM HIST. 30 GRAMS TUBE TP SCH (09:57)
[2017-01-26] MEDS: MULTIVITAMINS (DAILY MVI) TABLET (FP) PO SCH (09:57)
[2017-01-26] MEDS: ENOXAPARIN NA (PORCINE) 40 MG/0.4 ML DISP.SYRIN SQ SCH (09:57)
--- NOTE | 2017-01-26 13:33 | PN ---
Progress Note, Physician History of Present Illness: patient stable no new issues wounds healing well cellulitits resolving - Current Medication List Current Medications: Active Medications Aspirin (Ecotrin -) 81 mg PO DAILY [facility] Last Admin: 01/26/17 09:57 Dose: 81 mg Atorvastatin Calcium (Lipitor -) 40 mg PO HS [facility] Last Admin: 01/25/17 22:03 Dose: 40 mg Collagenase (Santyl -) 1 applic TP DAILY [facility] Last Admin: 01/26/17 09:57 Dose: 1 applic Enoxaparin Sodium (Lovenox -) 40 mg SQ DAILY [facility] Last Admin: 01/26/17 09:57 Dose: 40 mg Furosemide (Lasix -) 40 mg PO DAILY [facility] Last Admin: 01/26/17 09:57 Dose: 40 mg Piperacillin Sod/Tazobactam Sod (Zosyn 3.375gm Ivpb (Pre-Docked)) 50 mls @ 100 mls/hr IVPB Q8H-IV [facility] PRN Reason: Protocol Last Admin: 01/26/17 09:57 Dose: 100 mls/hr Levothyroxine Sodium (Synthroid -) 50 mcg PO AM [facility] Last Admin: 01/26/17 06:27 Dose: 50 mcg Multivitamins/Minerals/Vitamin C (Tab-A-Vit -) 1 tab PO DAILY [facility] Last Admin: 01/26/17 09:57 Dose: 1 tab - Objective Vital Signs: Vital Signs Temperature 97.6 F 01/26/17 07:43 Pulse Rate 72 01/26/17 07:43 Respiratory Rate 20 01/26/17 09:00 Blood Pressure 120/65 01/26/17 07:43 O2 Sat by Pulse Oximetry (%) 98 01/26/17 09:00 Constitutional: Yes: No Distress, Calm Cardiovascular: Yes: Regular Rate and Rhythm Respiratory: Yes: Regular, CTA Bilaterally Gastrointestinal: Yes: Normal Bowel Sounds, Soft Musculoskeletal: Yes: Other Extremities: Yes: Other Wound/Incision: Yes: Dressing Dry and Intact Neurological: Yes: Alert, Oriented Psychiatric: Yes: Alert, Oriented Labs: CBC, BMP 01/26/17 06:30 01/26/17 06:30 INR, PTT INR 1.12 (0.82-1.09) 01/18/17 12:10 Assessment/Plan Bilateral lower ext lymphedema with weeping ulcers. patient with cellulitis of the rt leg open wounds both legs plan continue abx continue wound care
--- NOTE | 2017-01-26 18:59 | PN ---
Progress Note, Physician History of Present Illness: Pt still has weeping - Current Medication List Current Medications: Active Medications Aspirin (Ecotrin -) 81 mg PO DAILY [facility] Last Admin: 01/26/17 09:57 Dose: 81 mg Atorvastatin Calcium (Lipitor -) 40 mg PO HS [facility] Last Admin: 01/25/17 22:03 Dose: 40 mg Collagenase (Santyl -) 1 applic TP DAILY [facility] Last Admin: 01/26/17 09:57 Dose: 1 applic Enoxaparin Sodium (Lovenox -) 40 mg SQ DAILY [facility] Last Admin: 01/26/17 09:57 Dose: 40 mg Furosemide (Lasix -) 40 mg PO DAILY [facility] Last Admin: 01/26/17 09:57 Dose: 40 mg Piperacillin Sod/Tazobactam Sod (Zosyn 3.375gm Ivpb (Pre-Docked)) 50 mls @ 100 mls/hr IVPB Q8H-IV [facility] PRN Reason: Protocol Last Admin: 01/26/17 18:29 Dose: 100 mls/hr Levothyroxine Sodium (Synthroid -) 50 mcg PO AM [facility] Last Admin: 01/26/17 06:27 Dose: 50 mcg Multivitamins/Minerals/Vitamin C (Tab-A-Vit -) 1 tab PO DAILY [facility] Last Admin: 01/26/17 09:57 Dose: 1 tab - Objective Vital Signs: Vital Signs Temperature 97.4 F L 01/26/17 15:33 Pulse Rate 75 01/26/17 15:33 Respiratory Rate 18 01/26/17 15:33 Blood Pressure 104/63 01/26/17 15:33 O2 Sat by Pulse Oximetry (%) 98 01/26/17 09:00 Constitutional: Yes: Well Nourished Eyes: Yes: WNL HENT: Yes: WNL Neck: Yes: WNL, Supple Cardiovascular: Yes: WNL, Regular Rate and Rhythm Respiratory: Yes: WNL, Regular, CTA Bilaterally Gastrointestinal: Yes: WNL, Normal Bowel Sounds, Abdomen, Obese Extremities: Yes: Other ((+) lymphedema w/ erythema/weeping) Edema: LLE: 1+, RLE: 1+ Labs: CBC, BMP 01/26/17 06:30 01/26/17 06:30 INR, PTT INR 1.12 (0.82-1.09) 01/18/17 12:10 Problem List - Problems (1) Cellulitis Assessment/Plan: Cont IV vanco/zosyn Cont wound care Wound cultures w/ multiple organisms Code(s): L03.90 - CELLULITIS, UNSPECIFIED Qualifiers: Site of cellulitis: extremity Site of cellulitis of extremity: lower extremity Laterality: unspecified laterality Qualified Code(s): L03.119 - Cellulitis of unspecified part of limb (2) Lymphedema Assessment/Plan: Cont lasix Code(s): I89.0 - LYMPHEDEMA, NOT ELSEWHERE CLASSIFIED (3) Diabetes Assessment/Plan: HgA1c was normal Controlled by diet Code(s): E11.9 - TYPE 2 DIABETES MELLITUS WITHOUT COMPLICATIONS (4) Hypothyroid Assessment/Plan: Cont levotyhroxine Code(s): E03.9 - HYPOTHYROIDISM, UNSPECIFIED Qualifiers: Hypothyroidism type: other Qualified Code(s): E03.8 - Other specified hypothyroidism; E06.3 - Autoimmune thyroiditis (5) HLD (hyperlipidemia) Assessment/Plan: Cont lipitor Code(s): E78.5 - HYPERLIPIDEMIA, UNSPECIFIED (6) Morbid obesity Code(s): E66.01 - MORBID (SEVERE) OBESITY DUE TO EXCESS CALORIES (7) CAD (coronary atherosclerotic disease) Code(s): I25.10 - ATHSCL HEART DISEASE OF [place] CORONARY ARTERY W/O ANG PCTRS
[2017-01-26] MEDS: ATORVASTATIN CA 40 MG TABLET (FP) PO SCH (23:58)
[2017-01-27] MEDS: PIPERACILLIN/TAZOB 3.375 GM 50 ML IVPB SCH ×3 (02:09→18:13)
[2017-01-27] MEDS: LEVOTHYROXINE NA 50 MCG TABLET (FP) PO SCH ×3 (08:06→10:29)
[2017-01-27] MEDS ORDERED: PT OWN MED DRAWER 7, Y5N ONE (10:16)
[2017-01-27] MEDS: COLLAGENASE CLOSTRIDIUM HIST. 30 GRAMS TUBE TP SCH (10:25)
[2017-01-27] MEDS: ENOXAPARIN NA (PORCINE) 40 MG/0.4 ML DISP.SYRIN SQ SCH (10:25)
[2017-01-27] MEDS: MULTIVITAMINS (DAILY MVI) TABLET (FP) PO SCH (10:25)
[2017-01-27] MEDS: ASPIRIN COATED 81 MG TABLET.EC PO SCH (10:25)
[2017-01-27] MEDS: FUROSEMIDE 40 MG TABLET (FP) PO SCH (10:25)
--- NOTE | 2017-01-27 13:29 | PN ---
Progress Note, Physician History of Present Illness: doing well legs improving wounds healing - Current Medication List Current Medications: Active Medications Aspirin (Ecotrin -) 81 mg PO DAILY [facility] Last Admin: 01/27/17 10:25 Dose: 81 mg Atorvastatin Calcium (Lipitor -) 40 mg PO HS [facility] Last Admin: 01/26/17 23:58 Dose: 40 mg Collagenase (Santyl -) 1 applic TP DAILY [facility] Last Admin: 01/27/17 10:25 Dose: 1 applic Enoxaparin Sodium (Lovenox -) 40 mg SQ DAILY [facility] Last Admin: 01/27/17 10:25 Dose: 40 mg Furosemide (Lasix -) 40 mg PO DAILY [facility] Last Admin: 01/27/17 10:25 Dose: 40 mg Piperacillin Sod/Tazobactam Sod (Zosyn 3.375gm Ivpb (Pre-Docked)) 50 mls @ 100 mls/hr IVPB Q8H-IV [facility] PRN Reason: Protocol Last Admin: 01/27/17 10:24 Dose: 100 mls/hr Levothyroxine Sodium (Synthroid -) 50 mcg PO AM [facility] Last Admin: 01/27/17 10:29 Dose: Not Given Multivitamins/Minerals/Vitamin C (Tab-A-Vit -) 1 tab PO DAILY [facility] Last Admin: 01/27/17 10:25 Dose: 1 tab - Objective Vital Signs: Vital Signs Temperature 97.7 F 01/27/17 06:45 Pulse Rate 70 01/27/17 06:45 Respiratory Rate 20 01/27/17 06:45 Blood Pressure 133/80 01/27/17 06:45 O2 Sat by Pulse Oximetry (%) 98 01/26/17 09:00 Constitutional: Yes: No Distress, Calm, Obese Cardiovascular: Yes: Regular Rate and Rhythm Respiratory: Yes: Regular, CTA Bilaterally Musculoskeletal: Yes: Other Extremities: Yes: Other Wound/Incision: Yes: Dressing Dry and Intact Neurological: Yes: Alert, Oriented Psychiatric: Yes: Alert, Oriented Labs: CBC, BMP 01/26/17 06:30 01/26/17 06:30 INR, PTT INR 1.12 (0.82-1.09) 01/18/17 12:10 Assessment/Plan Bilateral lower ext lymphedema with weeping ulcers. patient with cellulitis of the rt leg open wounds both legs plan continue abx continue wound care
--- NOTE | 2017-01-27 22:41 | PN ---
Progress Note, Physician - Current Medication List Current Medications: Active Medications Aspirin (Ecotrin -) 81 mg PO DAILY [facility] Last Admin: 01/27/17 10:25 Dose: 81 mg Atorvastatin Calcium (Lipitor -) 40 mg PO HS [facility] Last Admin: 01/26/17 23:58 Dose: 40 mg Collagenase (Santyl -) 1 applic TP DAILY [facility] Last Admin: 01/27/17 10:25 Dose: 1 applic Enoxaparin Sodium (Lovenox -) 40 mg SQ DAILY [facility] Last Admin: 01/27/17 10:25 Dose: 40 mg Furosemide (Lasix -) 40 mg PO DAILY [facility] Last Admin: 01/27/17 10:25 Dose: 40 mg Piperacillin Sod/Tazobactam Sod (Zosyn 3.375gm Ivpb (Pre-Docked)) 50 mls @ 100 mls/hr IVPB Q8H-IV [facility] PRN Reason: Protocol Last Admin: 01/27/17 18:13 Dose: 100 mls/hr Levothyroxine Sodium (Synthroid -) 50 mcg PO AM [facility] Last Admin: 01/27/17 10:29 Dose: Not Given Multivitamins/Minerals/Vitamin C (Tab-A-Vit -) 1 tab PO DAILY [facility] Last Admin: 01/27/17 10:25 Dose: 1 tab - Objective Vital Signs: Vital Signs Temperature 98.1 F 01/27/17 17:31 Pulse Rate 71 01/27/17 17:31 Respiratory Rate 20 01/27/17 17:31 Blood Pressure 98/54 01/27/17 17:31 O2 Sat by Pulse Oximetry (%) 100 01/27/17 09:00 Constitutional: Yes: Well Nourished Neck: Yes: WNL, Supple Cardiovascular: Yes: WNL, Regular Rate and Rhythm Respiratory: Yes: WNL, Regular, CTA Bilaterally Gastrointestinal: Yes: WNL, Normal Bowel Sounds, Soft, Abdomen, Obese Extremities: Yes: Other ((+) lymphedema w/ dressing) Labs: CBC, BMP 01/26/17 06:30 01/26/17 06:30 INR, PTT INR 1.12 (0.82-1.09) 01/18/17 12:10 Problem List - Problems (1) Cellulitis Code(s): L03.90 - CELLULITIS, UNSPECIFIED Qualifiers: Site of cellulitis: extremity Site of cellulitis of extremity: lower extremity Laterality: unspecified laterality Qualified Code(s): L03.119 - Cellulitis of unspecified part of limb (2) Lymphedema Code(s): I89.0 - LYMPHEDEMA, NOT ELSEWHERE CLASSIFIED (3) Diabetes Code(s): E11.9 - TYPE 2 DIABETES MELLITUS WITHOUT COMPLICATIONS (4) Hypothyroid Code(s): E03.9 - HYPOTHYROIDISM, UNSPECIFIED Qualifiers: Hypothyroidism type: other Qualified Code(s): E03.8 - Other specified hypothyroidism; E06.3 - Autoimmune thyroiditis (5) HLD (hyperlipidemia) Code(s): E78.5 - HYPERLIPIDEMIA, UNSPECIFIED (6) Morbid obesity Code(s): E66.01 - MORBID (SEVERE) OBESITY DUE TO EXCESS CALORIES (7) CAD (coronary atherosclerotic disease) Code(s): I25.10 - ATHSCL HEART DISEASE OF [place] CORONARY ARTERY W/O ANG PCTRS
[2017-01-27] MEDS: ATORVASTATIN CA 40 MG TABLET (FP) PO SCH (23:13)
[2017-01-28] MEDS: PIPERACILLIN/TAZOB 3.375 GM 50 ML IVPB SCH ×3 (01:36→18:57)
[2017-01-28] MEDS: LEVOTHYROXINE NA 50 MCG TABLET (FP) PO SCH (06:06)
[2017-01-28] MEDS ORDERED: PT OWN MED DRAWER 7, Y5N ONE (08:56)
[2017-01-28] MEDS: ASPIRIN COATED 81 MG TABLET.EC PO SCH (09:39)
[2017-01-28] MEDS: MULTIVITAMINS (DAILY MVI) TABLET (FP) PO SCH (09:39)
[2017-01-28] MEDS: ENOXAPARIN NA (PORCINE) 40 MG/0.4 ML DISP.SYRIN SQ SCH (09:39)
[2017-01-28] MEDS: FUROSEMIDE 40 MG TABLET (FP) PO SCH (09:39)
--- NOTE | 2017-01-28 16:23 | PN ---
Progress Note, Physician History of Present Illness: patient doing well leg looks much better - Current Medication List Current Medications: Active Medications Aspirin (Ecotrin -) 81 mg PO DAILY [facility] Last Admin: 01/28/17 09:39 Dose: 81 mg Atorvastatin Calcium (Lipitor -) 40 mg PO HS [facility] Last Admin: 01/27/17 23:13 Dose: 40 mg Collagenase (Santyl -) 1 applic TP DAILY [facility] Last Admin: 01/27/17 10:25 Dose: 1 applic Enoxaparin Sodium (Lovenox -) 40 mg SQ DAILY [facility] Last Admin: 01/28/17 09:39 Dose: 40 mg Furosemide (Lasix -) 40 mg PO DAILY [facility] Last Admin: 01/28/17 09:39 Dose: 40 mg Piperacillin Sod/Tazobactam Sod (Zosyn 3.375gm Ivpb (Pre-Docked)) 50 mls @ 100 mls/hr IVPB Q8H-IV [facility] PRN Reason: Protocol Last Admin: 01/28/17 09:39 Dose: 100 mls/hr Levothyroxine Sodium (Synthroid -) 50 mcg PO AM [facility] Last Admin: 01/28/17 06:06 Dose: 50 mcg Multivitamins/Minerals/Vitamin C (Tab-A-Vit -) 1 tab PO DAILY [facility] Last Admin: 01/28/17 09:39 Dose: 1 tab - Objective Vital Signs: Vital Signs Temperature 98.0 F 01/28/17 14:42 Pulse Rate 70 01/28/17 14:42 Respiratory Rate 18 01/28/17 14:42 Blood Pressure 118/61 01/28/17 14:42 O2 Sat by Pulse Oximetry (%) 100 01/28/17 10:00 Constitutional: Yes: No Distress, Calm, Obese Cardiovascular: Yes: Regular Rate and Rhythm Respiratory: Yes: Regular, CTA Bilaterally Gastrointestinal: Yes: Normal Bowel Sounds, Soft Musculoskeletal: Yes: Other Extremities: Yes: Other (swelling any erythema with rt leg oozing improving) Integumentary: Yes: Erythema Wound/Incision: Yes: Draining, Other (improving) Neurological: Yes: Alert, Oriented Psychiatric: Yes: Alert, Oriented Labs: CBC, BMP 01/26/17 06:30 01/26/17 06:30 INR, PTT INR 1.12 (0.82-1.09) 01/18/17 12:10 Assessment/Plan Bilateral lower ext lymphedema with weeping ulcers. patient with cellulitis of the rt leg open wounds both legs plan continue abx continue wound care once patient completes iv duration will switch to oral abx
[2017-01-28] MEDS: COLLAGENASE CLOSTRIDIUM HIST. 30 GRAMS TUBE TP SCH (18:57)
[2017-01-28] MEDS: ATORVASTATIN CA 40 MG TABLET (FP) PO SCH (22:00)
--- NOTE | 2017-01-28 23:52 | PN ---
Progress Note, Physician - Current Medication List Current Medications: Active Medications Aspirin (Ecotrin -) 81 mg PO DAILY [facility] Last Admin: 01/28/17 09:39 Dose: 81 mg Atorvastatin Calcium (Lipitor -) 40 mg PO HS [facility] Last Admin: 01/28/17 22:00 Dose: 40 mg Collagenase (Santyl -) 1 applic TP DAILY [facility] Last Admin: 01/28/17 18:57 Dose: 1 applic Enoxaparin Sodium (Lovenox -) 40 mg SQ DAILY [facility] Last Admin: 01/28/17 09:39 Dose: 40 mg Furosemide (Lasix -) 40 mg PO DAILY [facility] Last Admin: 01/28/17 09:39 Dose: 40 mg Piperacillin Sod/Tazobactam Sod (Zosyn 3.375gm Ivpb (Pre-Docked)) 50 mls @ 100 mls/hr IVPB Q8H-IV [facility] PRN Reason: Protocol Last Admin: 01/28/17 18:57 Dose: 100 mls/hr Levothyroxine Sodium (Synthroid -) 50 mcg PO AM [facility] Last Admin: 01/28/17 06:06 Dose: 50 mcg Multivitamins/Minerals/Vitamin C (Tab-A-Vit -) 1 tab PO DAILY [facility] Last Admin: 01/28/17 09:39 Dose: 1 tab - Objective Vital Signs: Vital Signs Temperature 98.9 F 01/28/17 22:00 Pulse Rate 72 01/28/17 22:00 Respiratory Rate 20 01/28/17 22:00 Blood Pressure 117/66 01/28/17 22:00 O2 Sat by Pulse Oximetry (%) 100 01/28/17 21:00 Constitutional: Yes: Well Nourished Neck: Yes: WNL, Supple Cardiovascular: Yes: WNL, Regular Rate and Rhythm Respiratory: Yes: WNL, Regular, CTA Bilaterally Gastrointestinal: Yes: WNL, Normal Bowel Sounds, Soft, Abdomen, Obese Labs: CBC, BMP 01/26/17 06:30 01/26/17 06:30 INR, PTT INR 1.12 (0.82-1.09) 01/18/17 12:10 Problem List - Problems (1) Cellulitis Code(s): L03.90 - CELLULITIS, UNSPECIFIED Qualifiers: Site of cellulitis: extremity Site of cellulitis of extremity: lower extremity Laterality: unspecified laterality Qualified Code(s): L03.119 - Cellulitis of unspecified part of limb (2) Lymphedema Code(s): I89.0 - LYMPHEDEMA, NOT ELSEWHERE CLASSIFIED (3) Diabetes Code(s): E11.9 - TYPE 2 DIABETES MELLITUS WITHOUT COMPLICATIONS (4) Hypothyroid Code(s): E03.9 - HYPOTHYROIDISM, UNSPECIFIED Qualifiers: Hypothyroidism type: other Qualified Code(s): E03.8 - Other specified hypothyroidism; E06.3 - Autoimmune thyroiditis (5) HLD (hyperlipidemia) Code(s): E78.5 - HYPERLIPIDEMIA, UNSPECIFIED (6) Morbid obesity Code(s): E66.01 - MORBID (SEVERE) OBESITY DUE TO EXCESS CALORIES (7) CAD (coronary atherosclerotic disease) Code(s): I25.10 - ATHSCL HEART DISEASE OF [place] CORONARY ARTERY W/O ANG PCTRS
[2017-01-29] MEDS: PIPERACILLIN/TAZOB 3.375 GM 50 ML IVPB SCH ×2 (01:31→10:00)
[2017-01-29] MEDS: LEVOTHYROXINE NA 50 MCG TABLET (FP) PO SCH (06:03)
[2017-01-29] MEDS: ENOXAPARIN NA (PORCINE) 40 MG/0.4 ML DISP.SYRIN SQ SCH (09:59)
[2017-01-29] MEDS: ASPIRIN COATED 81 MG TABLET.EC PO SCH (10:00)
[2017-01-29] MEDS: FUROSEMIDE 40 MG TABLET (FP) PO SCH (10:00)
[2017-01-29] MEDS: MULTIVITAMINS (DAILY MVI) TABLET (FP) PO SCH (10:00)
[2017-01-29] MEDS: COLLAGENASE CLOSTRIDIUM HIST. 30 GRAMS TUBE TP SCH (10:00)
--- NOTE | 2017-01-29 13:11 | PN ---
Progress Note, Physician History of Present Illness: patient stable doing well wounds are healing patient has lost iv line failed multiple sticks - Current Medication List Current Medications: Active Medications Aspirin (Ecotrin -) 81 mg PO DAILY [facility] Last Admin: 01/29/17 10:00 Dose: 81 mg Atorvastatin Calcium (Lipitor -) 40 mg PO HS [facility] Last Admin: 01/28/17 22:00 Dose: 40 mg Collagenase (Santyl -) 1 applic TP DAILY [facility] Last Admin: 01/29/17 10:00 Dose: 1 applic Enoxaparin Sodium (Lovenox -) 40 mg SQ DAILY [facility] Last Admin: 01/29/17 09:59 Dose: 40 mg Furosemide (Lasix -) 40 mg PO DAILY [facility] Last Admin: 01/29/17 10:00 Dose: 40 mg Levothyroxine Sodium (Synthroid -) 50 mcg PO AM [facility] Last Admin: 01/29/17 06:03 Dose: 50 mcg Multivitamins/Minerals/Vitamin C (Tab-A-Vit -) 1 tab PO DAILY [facility] Last Admin: 01/29/17 10:00 Dose: 1 tab - Objective Vital Signs: Vital Signs Temperature 98.2 F 01/29/17 06:43 Pulse Rate 68 01/29/17 06:43 Respiratory Rate 20 01/29/17 06:43 Blood Pressure 142/72 01/29/17 06:43 O2 Sat by Pulse Oximetry (%) 100 01/28/17 21:00 Constitutional: Yes: No Distress, Calm Cardiovascular: Yes: Regular Rate and Rhythm Respiratory: Yes: Regular, CTA Bilaterally Gastrointestinal: Yes: Normal Bowel Sounds, Soft Musculoskeletal: Yes: Other Extremities: Yes: Other Wound/Incision: Yes: Dressing Dry and Intact Neurological: Yes: Alert, Oriented Labs: CBC, BMP 01/26/17 06:30 01/26/17 06:30 INR, PTT INR 1.12 (0.82-1.09) 01/18/17 12:10 Assessment/Plan Bilateral lower ext lymphedema with weeping ulcers. patient with cellulitis of the rt leg open wounds both legs plan continue abx since patient lost iv access will start oral and see how he does started patient on levaquin and augmentin continue bot for 10 more days and see how patient does if he does not improve will have to start iv again
[2017-01-29] MEDS ORDERED: LEVOFLOXACIN 250 MG TABLET (FP) PO SCH (13:30)
[2017-01-29] MEDS: AMOX TR/POT CLAV 500MG/125MG TABLETS (FP) PO SCH (18:00)
--- NOTE | 2017-01-29 20:01 | PN ---
Progress Note, Physician History of Present Illness: No new complaints - Current Medication List Current Medications: Active Medications Amoxicillin/Clavulanate Potassium (Augmentin - 500mg Tablet) 1 tab PO BID@0800, 1730 [facility] Last Admin: 01/29/17 18:00 Dose: 1 tab Aspirin (Ecotrin -) 81 mg PO DAILY [facility] Last Admin: 01/29/17 10:00 Dose: 81 mg Atorvastatin Calcium (Lipitor -) 40 mg PO HS [facility] Last Admin: 01/28/17 22:00 Dose: 40 mg Collagenase (Santyl -) 1 applic TP DAILY [facility] Last Admin: 01/29/17 10:00 Dose: 1 applic Enoxaparin Sodium (Lovenox -) 40 mg SQ DAILY [facility] Last Admin: 01/29/17 09:59 Dose: 40 mg Furosemide (Lasix -) 40 mg PO DAILY [facility] Last Admin: 01/29/17 10:00 Dose: 40 mg Levofloxacin (Levaquin -) 750 mg PO DAILY@0600 [facility] Levothyroxine Sodium (Synthroid -) 50 mcg PO AM [facility] Last Admin: 01/29/17 06:03 Dose: 50 mcg Multivitamins/Minerals/Vitamin C (Tab-A-Vit -) 1 tab PO DAILY [facility] Last Admin: 01/29/17 10:00 Dose: 1 tab - Objective Vital Signs: Vital Signs Temperature 98.6 F 01/29/17 18:18 Pulse Rate 77 01/29/17 18:18 Respiratory Rate 20 01/29/17 18:18 Blood Pressure 121/63 01/29/17 18:18 O2 Sat by Pulse Oximetry (%) 97 01/29/17 09:00 Constitutional: Yes: Well Nourished HENT: Yes: WNL Neck: Yes: WNL, Supple Cardiovascular: Yes: WNL, Regular Rate and Rhythm Respiratory: Yes: WNL, Regular, CTA Bilaterally Gastrointestinal: Yes: WNL, Normal Bowel Sounds, Abdomen, Obese Extremities: Yes: Other ((+) dressing b/l lower extremities) Labs: CBC, BMP 01/26/17 06:30 01/26/17 06:30 INR, PTT INR 1.12 (0.82-1.09) 01/18/17 12:10 Problem List - Problems (1) Cellulitis Code(s): L03.90 - CELLULITIS, UNSPECIFIED Qualifiers: Site of cellulitis: extremity Site of cellulitis of extremity: lower extremity Laterality: unspecified laterality Qualified Code(s): L03.119 - Cellulitis of unspecified part of limb (2) Lymphedema Code(s): I89.0 - LYMPHEDEMA, NOT ELSEWHERE CLASSIFIED (3) Diabetes Code(s): E11.9 - TYPE 2 DIABETES MELLITUS WITHOUT COMPLICATIONS (4) Hypothyroid Code(s): E03.9 - HYPOTHYROIDISM, UNSPECIFIED Qualifiers: Hypothyroidism type: other Qualified Code(s): E03.8 - Other specified hypothyroidism; E06.3 - Autoimmune thyroiditis (5) HLD (hyperlipidemia) Code(s): E78.5 - HYPERLIPIDEMIA, UNSPECIFIED (6) Morbid obesity Code(s): E66.01 - MORBID (SEVERE) OBESITY DUE TO EXCESS CALORIES (7) CAD (coronary atherosclerotic disease) Code(s): I25.10 - ATHSCL HEART DISEASE OF [place] CORONARY ARTERY W/O ANG PCTRS
[2017-01-29] MEDS: ATORVASTATIN CA 40 MG TABLET (FP) PO SCH (21:04)
[2017-01-30] MEDS ORDERED: LEVOFLOXACIN 250 MG TABLET (FP) PO SCH ×2 (06:00)
[2017-01-30] MEDS: LEVOTHYROXINE NA 50 MCG TABLET (FP) PO SCH (06:16)
[2017-01-30] MEDS: LEVOFLOXACIN 750 MG TABLET PO SCH (06:16)
[2017-01-30] MEDS: AMOX TR/POT CLAV 500MG/125MG TABLETS (FP) PO SCH ×2 (08:16→17:37)
[2017-01-30] MEDS: MULTIVITAMINS (DAILY MVI) TABLET (FP) PO SCH (10:06)
[2017-01-30] MEDS: FUROSEMIDE 40 MG TABLET (FP) PO SCH (10:06)
[2017-01-30] MEDS: ASPIRIN COATED 81 MG TABLET.EC PO SCH (10:06)
[2017-01-30] MEDS: COLLAGENASE CLOSTRIDIUM HIST. 30 GRAMS TUBE TP SCH (10:07)
[2017-01-30] MEDS: ENOXAPARIN NA (PORCINE) 40 MG/0.4 ML DISP.SYRIN SQ SCH (10:08)
--- NOTE | 2017-01-30 16:20 | PN ---
Progress Note, Physician History of Present Illness: patient doing well no complaints except rt leg is still oozing have told the patient it will ooze for some time - Current Medication List Current Medications: Active Medications Amoxicillin/Clavulanate Potassium (Augmentin - 500mg Tablet) 1 tab PO BID@0800, 1730 [facility] Last Admin: 01/30/17 08:16 Dose: 1 tab Aspirin (Ecotrin -) 81 mg PO DAILY [facility] Last Admin: 01/30/17 10:06 Dose: 81 mg Atorvastatin Calcium (Lipitor -) 40 mg PO HS [facility] Last Admin: 01/29/17 21:04 Dose: 40 mg Collagenase (Santyl -) 1 applic TP DAILY [facility] Last Admin: 01/30/17 10:07 Dose: 1 applic Enoxaparin Sodium (Lovenox -) 40 mg SQ DAILY [facility] Last Admin: 01/30/17 10:08 Dose: 40 mg Furosemide (Lasix -) 40 mg PO DAILY [facility] Last Admin: 01/30/17 10:06 Dose: 40 mg Levofloxacin (Levaquin) 750 mg PO DAILY@0600 [facility] Last Admin: 01/30/17 06:16 Dose: 750 mg Levothyroxine Sodium (Synthroid -) 50 mcg PO AM [facility] Last Admin: 01/30/17 06:16 Dose: 50 mcg Multivitamins/Minerals/Vitamin C (Tab-A-Vit -) 1 tab PO DAILY [facility] Last Admin: 01/30/17 10:06 Dose: 1 tab - Objective Vital Signs: Vital Signs Temperature 97.9 F 01/30/17 10:00 Pulse Rate 76 01/30/17 10:00 Respiratory Rate 18 01/30/17 10:00 Blood Pressure 116/61 01/30/17 10:00 O2 Sat by Pulse Oximetry (%) 97 01/30/17 09:00 Constitutional: Yes: No Distress, Calm Cardiovascular: Yes: Regular Rate and Rhythm Respiratory: Yes: Regular, CTA Bilaterally Gastrointestinal: Yes: Normal Bowel Sounds, Soft Musculoskeletal: Yes: Other Extremities: Yes: Other Integumentary: Yes: Erythema Wound/Incision: Yes: Dressing Dry and Intact Neurological: Yes: Alert, Oriented Psychiatric: Yes: Alert, Oriented Labs: CBC, BMP 01/26/17 06:30 01/26/17 06:30 INR, PTT INR 1.12 (0.82-1.09) 01/18/17 12:10 Assessment/Plan Bilateral lower ext lymphedema with weeping ulcers. patient with cellulitis of the rt leg open wounds both legs plan continue abx continue wound care continue dsg
--- NOTE | 2017-01-30 19:44 | PN ---
Progress Note, Physician History of Present Illness: No new complaints - Current Medication List Current Medications: Active Medications Amoxicillin/Clavulanate Potassium (Augmentin - 500mg Tablet) 1 tab PO BID@0800, 1730 [facility] Last Admin: 01/30/17 17:37 Dose: 1 tab Aspirin (Ecotrin -) 81 mg PO DAILY [facility] Last Admin: 01/30/17 10:06 Dose: 81 mg Atorvastatin Calcium (Lipitor -) 40 mg PO HS [facility] Last Admin: 01/29/17 21:04 Dose: 40 mg Collagenase (Santyl -) 1 applic TP DAILY [facility] Last Admin: 01/30/17 10:07 Dose: 1 applic Enoxaparin Sodium (Lovenox -) 40 mg SQ DAILY [facility] Last Admin: 01/30/17 10:08 Dose: 40 mg Furosemide (Lasix -) 40 mg PO DAILY [facility] Last Admin: 01/30/17 10:06 Dose: 40 mg Levofloxacin (Levaquin) 750 mg PO DAILY@0600 [facility] Last Admin: 01/30/17 06:16 Dose: 750 mg Levothyroxine Sodium (Synthroid -) 50 mcg PO AM [facility] Last Admin: 01/30/17 06:16 Dose: 50 mcg Multivitamins/Minerals/Vitamin C (Tab-A-Vit -) 1 tab PO DAILY [facility] Last Admin: 01/30/17 10:06 Dose: 1 tab - Objective Vital Signs: Vital Signs Temperature 98.7 F 01/30/17 16:30 Pulse Rate 77 01/30/17 16:30 Respiratory Rate 20 01/30/17 16:30 Blood Pressure 103/66 01/30/17 16:30 O2 Sat by Pulse Oximetry (%) 97 01/30/17 09:00 Constitutional: Yes: Well Nourished HENT: Yes: WNL Neck: Yes: WNL, Supple Cardiovascular: Yes: WNL, Regular Rate and Rhythm Respiratory: Yes: WNL, Regular, CTA Bilaterally Gastrointestinal: Yes: WNL, Normal Bowel Sounds, Soft, Abdomen, Obese Extremities: Yes: Other ((+) dressing lower extremities) Labs: CBC, BMP 01/26/17 06:30 01/26/17 06:30 INR, PTT INR 1.12 (0.82-1.09) 01/18/17 12:10 Problem List - Problems (1) Cellulitis Code(s): L03.90 - CELLULITIS, UNSPECIFIED Qualifiers: Site of cellulitis: extremity Site of cellulitis of extremity: lower extremity Laterality: unspecified laterality Qualified Code(s): L03.119 - Cellulitis of unspecified part of limb (2) Lymphedema Code(s): I89.0 - LYMPHEDEMA, NOT ELSEWHERE CLASSIFIED (3) Diabetes Code(s): E11.9 - TYPE 2 DIABETES MELLITUS WITHOUT COMPLICATIONS (4) Hypothyroid Code(s): E03.9 - HYPOTHYROIDISM, UNSPECIFIED Qualifiers: Hypothyroidism type: other Qualified Code(s): E03.8 - Other specified hypothyroidism; E06.3 - Autoimmune thyroiditis (5) HLD (hyperlipidemia) Code(s): E78.5 - HYPERLIPIDEMIA, UNSPECIFIED (6) Morbid obesity Code(s): E66.01 - MORBID (SEVERE) OBESITY DUE TO EXCESS CALORIES (7) CAD (coronary atherosclerotic disease) Code(s): I25.10 - ATHSCL HEART DISEASE OF [place] CORONARY ARTERY W/O ANG PCTRS
[2017-01-30] MEDS: ATORVASTATIN CA 40 MG TABLET (FP) PO SCH (21:40)
[2017-01-31] MEDS: LEVOTHYROXINE NA 50 MCG TABLET (FP) PO SCH (06:53)
[2017-01-31] MEDS: LEVOFLOXACIN 750 MG TABLET PO SCH (06:53)
[2017-01-31] MEDS: AMOX TR/POT CLAV 500MG/125MG TABLETS (FP) PO SCH ×2 (08:06→17:18)
[2017-01-31] MEDS: ASPIRIN COATED 81 MG TABLET.EC PO SCH (09:56)
[2017-01-31] MEDS: FUROSEMIDE 40 MG TABLET (FP) PO SCH (09:56)
[2017-01-31] MEDS: MULTIVITAMINS (DAILY MVI) TABLET (FP) PO SCH (09:56)
[2017-01-31] MEDS: ENOXAPARIN NA (PORCINE) 40 MG/0.4 ML DISP.SYRIN SQ SCH (09:57)
[2017-01-31] MEDS: COLLAGENASE CLOSTRIDIUM HIST. 30 GRAMS TUBE TP SCH (09:57)
--- NOTE | 2017-01-31 15:16 | PN ---
Progress Note, Physician History of Present Illness: patient stable no new issues - Current Medication List Current Medications: Active Medications Amoxicillin/Clavulanate Potassium (Augmentin - 500mg Tablet) 1 tab PO BID@0800, 1730 [facility] Last Admin: 01/31/17 08:06 Dose: 1 tab Aspirin (Ecotrin -) 81 mg PO DAILY [facility] Last Admin: 01/31/17 09:56 Dose: 81 mg Atorvastatin Calcium (Lipitor -) 40 mg PO HS [facility] Last Admin: 01/30/17 21:40 Dose: 40 mg Collagenase (Santyl -) 1 applic TP DAILY [facility] Last Admin: 01/31/17 09:57 Dose: 1 applic Enoxaparin Sodium (Lovenox -) 40 mg SQ DAILY [facility] Last Admin: 01/31/17 09:57 Dose: 40 mg Furosemide (Lasix -) 40 mg PO DAILY [facility] Last Admin: 01/31/17 09:56 Dose: 40 mg Levofloxacin (Levaquin) 750 mg PO DAILY@0600 [facility] Last Admin: 01/31/17 06:53 Dose: 750 mg Levothyroxine Sodium (Synthroid -) 50 mcg PO AM [facility] Last Admin: 01/31/17 06:53 Dose: 50 mcg Multivitamins/Minerals/Vitamin C (Tab-A-Vit -) 1 tab PO DAILY [facility] Last Admin: 01/31/17 09:56 Dose: 1 tab - Objective Vital Signs: Vital Signs Temperature 97.7 F 01/31/17 09:00 Pulse Rate 67 01/31/17 09:00 Respiratory Rate 20 01/31/17 09:00 Blood Pressure 105/65 01/31/17 09:00 O2 Sat by Pulse Oximetry (%) 97 01/31/17 09:00 Constitutional: Yes: No Distress, Calm, Obese HENT: Yes: Atraumatic Cardiovascular: Yes: Regular Rate and Rhythm Respiratory: Yes: Regular, CTA Bilaterally Gastrointestinal: Yes: Normal Bowel Sounds, Soft Musculoskeletal: Yes: Other Extremities: Yes: Other Wound/Incision: Yes: Other (dressing removed wound looked at legs improving) Neurological: Yes: Alert, Oriented Psychiatric: Yes: Alert, Oriented Labs: CBC, BMP 01/26/17 06:30 01/26/17 06:30 INR, PTT INR 1.12 (0.82-1.09) 01/18/17 12:10 Assessment/Plan Bilateral lower ext lymphedema with weeping ulcers. patient with cellulitis of the rt leg open wounds both legs plan continue abx continue wound care continue dsg
--- NOTE | 2017-01-31 19:50 | PN ---
Progress Note, Physician - Current Medication List Current Medications: Active Medications Amoxicillin/Clavulanate Potassium (Augmentin - 500mg Tablet) 1 tab PO BID@0800, 1730 [facility] Last Admin: 01/31/17 17:18 Dose: 1 tab Aspirin (Ecotrin -) 81 mg PO DAILY [facility] Last Admin: 01/31/17 09:56 Dose: 81 mg Atorvastatin Calcium (Lipitor -) 40 mg PO HS [facility] Last Admin: 01/30/17 21:40 Dose: 40 mg Collagenase (Santyl -) 1 applic TP DAILY [facility] Last Admin: 01/31/17 09:57 Dose: 1 applic Enoxaparin Sodium (Lovenox -) 40 mg SQ DAILY [facility] Last Admin: 01/31/17 09:57 Dose: 40 mg Furosemide (Lasix -) 40 mg PO DAILY [facility] Last Admin: 01/31/17 09:56 Dose: 40 mg Levofloxacin (Levaquin) 750 mg PO DAILY@0600 [facility] Last Admin: 01/31/17 06:53 Dose: 750 mg Levothyroxine Sodium (Synthroid -) 50 mcg PO AM [facility] Last Admin: 01/31/17 06:53 Dose: 50 mcg Multivitamins/Minerals/Vitamin C (Tab-A-Vit -) 1 tab PO DAILY [facility] Last Admin: 01/31/17 09:56 Dose: 1 tab - Objective Vital Signs: Vital Signs Temperature 97.6 F 01/31/17 16:30 Pulse Rate 72 01/31/17 16:30 Respiratory Rate 20 01/31/17 16:30 Blood Pressure 97/57 01/31/17 16:30 O2 Sat by Pulse Oximetry (%) 97 01/31/17 09:00 Constitutional: Yes: Well Nourished Eyes: Yes: WNL HENT: Yes: WNL Neck: Yes: WNL, Supple Cardiovascular: Yes: WNL, Regular Rate and Rhythm Respiratory: Yes: WNL, Regular, CTA Bilaterally Gastrointestinal: Yes: WNL, Normal Bowel Sounds, Soft, Abdomen, Obese Extremities: Yes: Other ((+) lymphedema w/ weeping ulcers) Edema: LLE: 1+, RLE: 1+ Labs: CBC, BMP 01/26/17 06:30 01/26/17 06:30 INR, PTT INR 1.12 (0.82-1.09) 01/18/17 12:10 Problem List - Problems (1) Cellulitis Assessment/Plan: Pt w/ no IV access and therefore now on PO levaquinaugmentin DC planning in am to [facility] Count wound care Code(s): L03.90 - CELLULITIS, UNSPECIFIED Qualifiers: Site of cellulitis: extremity Site of cellulitis of extremity: lower extremity Laterality: unspecified laterality Qualified Code(s): L03.119 - Cellulitis of unspecified part of limb (2) Lymphedema Assessment/Plan: Cont lasix Code(s): I89.0 - LYMPHEDEMA, NOT ELSEWHERE CLASSIFIED (3) Diabetes Assessment/Plan: HgA1c was normal Controlled by diet Code(s): E11.9 - TYPE 2 DIABETES MELLITUS WITHOUT COMPLICATIONS (4) Hypothyroid Assessment/Plan: Cont levotyhroxine Code(s): E03.9 - HYPOTHYROIDISM, UNSPECIFIED Qualifiers: Hypothyroidism type: other Qualified Code(s): E03.8 - Other specified hypothyroidism; E06.3 - Autoimmune thyroiditis (5) HLD (hyperlipidemia) Assessment/Plan: Cont lipitor Code(s): E78.5 - HYPERLIPIDEMIA, UNSPECIFIED (6) Morbid obesity Code(s): E66.01 - MORBID (SEVERE) OBESITY DUE TO EXCESS CALORIES (7) CAD (coronary atherosclerotic disease) Code(s): I25.10 - ATHSCL HEART DISEASE OF [place] CORONARY ARTERY W/O ANG PCTRS
[2017-01-31] MEDS: ATORVASTATIN CA 40 MG TABLET (FP) PO SCH (21:50)
[2017-02-01] MEDS: LEVOTHYROXINE NA 50 MCG TABLET (FP) PO SCH (06:25)
[2017-02-01] MEDS: LEVOFLOXACIN 750 MG TABLET PO SCH (06:25)
[2017-02-01] MEDS: AMOX TR/POT CLAV 500MG/125MG TABLETS (FP) PO SCH ×2 (09:09→17:13)
[2017-02-01] MEDS: FUROSEMIDE 40 MG TABLET (FP) PO SCH (09:52)
[2017-02-01] MEDS: MULTIVITAMINS (DAILY MVI) TABLET (FP) PO SCH (09:52)
[2017-02-01] MEDS: ASPIRIN COATED 81 MG TABLET.EC PO SCH (09:52)
--- NOTE | 2017-02-01 13:53 | PN ---
Progress Note, Physician History of Present Illness: rt leg still draining but improving pain better - Current Medication List Current Medications: Active Medications Amoxicillin/Clavulanate Potassium (Augmentin - 500mg Tablet) 1 tab PO BID@0800, 1730 [facility] Last Admin: 02/01/17 09:09 Dose: 1 tab Aspirin (Ecotrin -) 81 mg PO DAILY [facility] Last Admin: 02/01/17 09:52 Dose: 81 mg Atorvastatin Calcium (Lipitor -) 40 mg PO HS [facility] Last Admin: 01/31/17 21:50 Dose: 40 mg Collagenase (Santyl -) 1 applic TP DAILY [facility] Last Admin: 01/31/17 09:57 Dose: 1 applic Furosemide (Lasix -) 40 mg PO DAILY [facility] Last Admin: 02/01/17 09:52 Dose: 40 mg Levofloxacin (Levaquin) 750 mg PO DAILY@0600 [facility] Last Admin: 02/01/17 06:25 Dose: 750 mg Levothyroxine Sodium (Synthroid -) 50 mcg PO AM [facility] Last Admin: 02/01/17 06:25 Dose: 50 mcg Multivitamins/Minerals/Vitamin C (Tab-A-Vit -) 1 tab PO DAILY [facility] Last Admin: 02/01/17 09:52 Dose: 1 tab - Objective Vital Signs: Vital Signs Temperature 98.7 F 02/01/17 10:00 Pulse Rate 80 02/01/17 10:00 Respiratory Rate 18 02/01/17 10:00 Blood Pressure 113/60 02/01/17 10:00 O2 Sat by Pulse Oximetry (%) 97 02/01/17 09:00 Constitutional: Yes: No Distress, Calm Cardiovascular: Yes: Regular Rate and Rhythm Respiratory: Yes: Regular, CTA Bilaterally Gastrointestinal: Yes: Normal Bowel Sounds, Soft Musculoskeletal: Yes: WNL Extremities: Yes: Other Wound/Incision: Yes: Dressing Dry and Intact Neurological: Yes: Alert, Oriented Psychiatric: Yes: Alert, Oriented Labs: CBC, BMP 01/26/17 06:30 01/26/17 06:30 INR, PTT INR 1.12 (0.82-1.09) 01/18/17 12:10 Assessment/Plan Bilateral lower ext lymphedema with weeping ulcers. patient with cellulitis of the rt leg open wounds both legs plan continue abx continue wound care continue dsg
[2017-02-01] MEDS: COLLAGENASE CLOSTRIDIUM HIST. 30 GRAMS TUBE TP SCH (17:12)
--- NOTE | 2017-02-01 19:27 | PN ---
Progress Note, Physician History of Present Illness: No new complaints - Current Medication List Current Medications: Active Medications Amoxicillin/Clavulanate Potassium (Augmentin - 500mg Tablet) 1 tab PO BID@0800, 1730 [facility] Last Admin: 02/01/17 17:13 Dose: 1 tab Aspirin (Ecotrin -) 81 mg PO DAILY [facility] Last Admin: 02/01/17 09:52 Dose: 81 mg Atorvastatin Calcium (Lipitor -) 40 mg PO HS [facility] Last Admin: 01/31/17 21:50 Dose: 40 mg Collagenase (Santyl -) 1 applic TP DAILY [facility] Last Admin: 02/01/17 17:12 Dose: 1 applic Furosemide (Lasix -) 40 mg PO DAILY [facility] Last Admin: 02/01/17 09:52 Dose: 40 mg Levofloxacin (Levaquin) 750 mg PO DAILY@0600 [facility] Last Admin: 02/01/17 06:25 Dose: 750 mg Levothyroxine Sodium (Synthroid -) 50 mcg PO AM [facility] Last Admin: 02/01/17 06:25 Dose: 50 mcg Multivitamins/Minerals/Vitamin C (Tab-A-Vit -) 1 tab PO DAILY [facility] Last Admin: 02/01/17 09:52 Dose: 1 tab - Objective Vital Signs: Vital Signs Temperature 97.7 F 02/01/17 17:17 Pulse Rate 76 02/01/17 17:17 Respiratory Rate 20 02/01/17 17:17 Blood Pressure 101/52 02/01/17 17:17 O2 Sat by Pulse Oximetry (%) 97 02/01/17 09:00 Constitutional: Yes: Well Nourished HENT: Yes: WNL Neck: Yes: WNL, Supple Cardiovascular: Yes: WNL, Regular Rate and Rhythm Respiratory: Yes: WNL, Regular, CTA Bilaterally Gastrointestinal: Yes: WNL, Normal Bowel Sounds Extremities: Yes: Other ((+) lymphedema (+) erythema/weeping) Labs: CBC, BMP 01/26/17 06:30 01/26/17 06:30 INR, PTT INR 1.12 (0.82-1.09) 01/18/17 12:10 Problem List - Problems (1) Cellulitis Assessment/Plan: Cont PO levaquinaugmentin Count wound care Code(s): L03.90 - CELLULITIS, UNSPECIFIED Qualifiers: Site of cellulitis: extremity Site of cellulitis of extremity: lower extremity Laterality: unspecified laterality Qualified Code(s): L03.119 - Cellulitis of unspecified part of limb (2) Lymphedema Assessment/Plan: Cont lasix Code(s): I89.0 - LYMPHEDEMA, NOT ELSEWHERE CLASSIFIED (3) Diabetes Assessment/Plan: HgA1c was normal Controlled by diet Code(s): E11.9 - TYPE 2 DIABETES MELLITUS WITHOUT COMPLICATIONS (4) Hypothyroid Assessment/Plan: Cont levotyhroxine Code(s): E03.9 - HYPOTHYROIDISM, UNSPECIFIED Qualifiers: Hypothyroidism type: other Qualified Code(s): E03.8 - Other specified hypothyroidism; E06.3 - Autoimmune thyroiditis (5) HLD (hyperlipidemia) Assessment/Plan: Cont lipitor Code(s): E78.5 - HYPERLIPIDEMIA, UNSPECIFIED (6) Morbid obesity Code(s): E66.01 - MORBID (SEVERE) OBESITY DUE TO EXCESS CALORIES (7) CAD (coronary atherosclerotic disease) Code(s): I25.10 - ATHSCL HEART DISEASE OF [place] CORONARY ARTERY W/O ANG PCTRS
[2017-02-01] MEDS: ATORVASTATIN CA 40 MG TABLET (FP) PO SCH (21:22)
[2017-02-02] MEDS: LEVOFLOXACIN 750 MG TABLET PO SCH (05:51)
[2017-02-02] MEDS: LEVOTHYROXINE NA 50 MCG TABLET (FP) PO SCH (06:10)
[2017-02-02] MEDS: AMOX TR/POT CLAV 500MG/125MG TABLETS (FP) PO SCH ×2 (08:00→17:18)
[2017-02-02 08:14] LABS: BASOPHIL 0.8 % (0-2.0); EOSINOPHIL 3.3 % (0-4.5); MCH 30.6 pg (25.7-33.7); MCHC 32.7 g/dl (32.0-35.9); MEAN CELL VOLUME 93.3 fl (80-96); MEAN PLT VOLUME 8.8 fl (7.5-11.1); NEUTROPHILS 71.9 % (42.8-82.8); PLATELET COUNT 188 K/MM3 (134-434); RDW 15.1 % (11.9-15.9); WHITE BLOOD COUNT 8.4 K/mm3 (4.0-10.0)
[2017-02-02 08:43] LABS: ALBUMIN 3.4 g/dl (3.4-5.0); ALK PHOS 84 U/L (45-117); ANION GAP 8 (8-16); BILIRUBIN,TOTAL 0.6 mg/dL (0.2-1.0); CALCIUM 9.5 mg/dL (8.5-10.1); CO2 33 mmol/L (21-32); CREATININE 1.1 mg/dL (0.7-1.3); GLUCOSE,RANDOM 96 mg/dL (74-106); SGOT/AST 27 U/L (15-37); SGPT/ALT 47 U/L (12-78); TOT PROT 7.1 g/dl (6.4-8.2)
[2017-02-02] MEDS: FUROSEMIDE 40 MG TABLET (FP) PO SCH (09:12)
[2017-02-02] MEDS: MULTIVITAMINS (DAILY MVI) TABLET (FP) PO SCH (09:12)
[2017-02-02] MEDS: ASPIRIN COATED 81 MG TABLET.EC PO SCH (09:12)
[2017-02-02] MEDS: COLLAGENASE CLOSTRIDIUM HIST. 30 GRAMS TUBE TP SCH (09:13)
--- NOTE | 2017-02-02 11:01 | PN ---
Progress Note, Physician History of Present Illness: stable no new issues - Current Medication List Current Medications: Active Medications Amoxicillin/Clavulanate Potassium (Augmentin - 500mg Tablet) 1 tab PO BID@0800, 1730 [facility] Last Admin: 02/02/17 08:00 Dose: 1 tab Aspirin (Ecotrin -) [address] [facility] Last Admin: 02/02/17 09:12 Dose: 81 mg Atorvastatin Calcium (Lipitor -) [address] [facility] Last Admin: 02/01/17 21:22 Dose: 40 mg Collagenase (Santyl -) [address] [facility] Last Admin: 02/02/17 09:13 Dose: 1 applic Furosemide (Lasix -) [address] [facility] Last Admin: 02/02/17 09:12 Dose: 40 mg Levofloxacin (Levaquin) 750 mg PO DAILY@0600 [facility] Last Admin: 02/02/17 05:51 Dose: 750 mg Levothyroxine Sodium (Synthroid -) [address] [facility] Last Admin: 02/02/17 06:10 Dose: 50 mcg Multivitamins/Minerals/Vitamin C (Tab-A-Vit -) [address] [facility] Last Admin: 02/02/17 09:12 Dose: 1 tab - Objective Vital Signs: Vital Signs Temperature 97.3 F L 02/02/17 08:26 Pulse Rate 71 02/02/17 08:26 Respiratory Rate 20 02/02/17 08:26 Blood Pressure 113/66 02/02/17 08:26 O2 Sat by Pulse Oximetry (%) 100 02/02/17 09:00 Constitutional: Yes: No Distress, Calm, Obese Cardiovascular: Yes: Regular Rate and Rhythm Gastrointestinal: Yes: Normal Bowel Sounds, Soft Musculoskeletal: Yes: Other Extremities: Yes: Other (draiange of the right leg) Neurological: Yes: Alert, Oriented Psychiatric: Yes: Alert Labs: CBC, BMP 02/02/17 06:10 02/02/17 06:10 INR, PTT INR 1.12 (0.82-1.09) 01/18/17 12:10 Assessment/Plan Bilateral lower ext lymphedema with weeping ulcers. patient with cellulitis of the rt leg open wounds both legs plan continue abx continue wound care continue dsg
[2017-02-02] MEDS: ATORVASTATIN CA 40 MG TABLET (FP) PO SCH (21:51)
--- NOTE | 2017-02-02 23:53 | PN ---
Progress Note, Physician History of Present Illness: No new complaints - Current Medication List Current Medications: Active Medications Amoxicillin/Clavulanate Potassium (Augmentin - 500mg Tablet) 1 tab PO BID@0800, 1730 [facility] Last Admin: 02/02/17 17:18 Dose: 1 tab Aspirin (Ecotrin -) 81 mg PO DAILY [facility] Last Admin: 02/02/17 09:12 Dose: 81 mg Atorvastatin Calcium (Lipitor -) 40 mg PO HS [facility] Last Admin: 02/02/17 21:51 Dose: 40 mg Collagenase (Santyl -) 1 applic TP DAILY [facility] Last Admin: 02/02/17 09:13 Dose: 1 applic Furosemide (Lasix -) 40 mg PO DAILY [facility] Last Admin: 02/02/17 09:12 Dose: 40 mg Levofloxacin (Levaquin) 750 mg PO DAILY@0600 [facility] Last Admin: 02/02/17 05:51 Dose: 750 mg Levothyroxine Sodium (Synthroid -) 50 mcg PO AM [facility] Last Admin: 02/02/17 06:10 Dose: 50 mcg Multivitamins/Minerals/Vitamin C (Tab-A-Vit -) 1 tab PO DAILY [facility] Last Admin: 02/02/17 09:12 Dose: 1 tab - Objective Vital Signs: Vital Signs Temperature 97.7 F 02/02/17 22:00 Pulse Rate 74 02/02/17 22:00 Respiratory Rate 18 02/02/17 22:00 Blood Pressure 100/57 02/02/17 22:00 O2 Sat by Pulse Oximetry (%) 100 02/02/17 21:00 Constitutional: Yes: Well Nourished HENT: Yes: WNL Neck: Yes: WNL, Supple Cardiovascular: Yes: WNL, Regular Rate and Rhythm Respiratory: Yes: WNL, Regular, CTA Bilaterally Gastrointestinal: Yes: WNL, Normal Bowel Sounds Extremities: Yes: Other ((+) lymphedema w/ oozing) Labs: CBC, BMP 02/02/17 06:10 02/02/17 06:10 INR, PTT INR 1.12 (0.82-1.09) 01/18/17 12:10 Problem List - Problems (1) Cellulitis Assessment/Plan: Cont PO levaquinaugmentin Count wound care DC planning in am to [facility] Code(s): L03.90 - CELLULITIS, UNSPECIFIED Qualifiers: Site of cellulitis: extremity Site of cellulitis of extremity: lower extremity Laterality: unspecified laterality Qualified Code(s): L03.119 - Cellulitis of unspecified part of limb (2) Lymphedema Code(s): I89.0 - LYMPHEDEMA, NOT ELSEWHERE CLASSIFIED (3) Diabetes Code(s): E11.9 - TYPE 2 DIABETES MELLITUS WITHOUT COMPLICATIONS (4) Hypothyroid Code(s): E03.9 - HYPOTHYROIDISM, UNSPECIFIED Qualifiers: Hypothyroidism type: other Qualified Code(s): E03.8 - Other specified hypothyroidism; E06.3 - Autoimmune thyroiditis (5) HLD (hyperlipidemia) Code(s): E78.5 - HYPERLIPIDEMIA, UNSPECIFIED (6) Morbid obesity Code(s): E66.01 - MORBID (SEVERE) OBESITY DUE TO EXCESS CALORIES (7) CAD (coronary atherosclerotic disease) Code(s): I25.10 - ATHSCL HEART DISEASE OF [place] CORONARY ARTERY W/O ANG PCTRS
[2017-02-03] MEDS: LEVOFLOXACIN 750 MG TABLET PO SCH (05:48)
[2017-02-03] MEDS: LEVOTHYROXINE NA 50 MCG TABLET (FP) PO SCH (06:08)
[2017-02-03] MEDS: AMOX TR/POT CLAV 500MG/125MG TABLETS (FP) PO SCH (08:20)
[2017-02-03 08:41] VITALS: BP 114/55; PULSE 68; TEMP 97.3
[2017-02-03] MEDS: MULTIVITAMINS (DAILY MVI) TABLET (FP) PO SCH (10:05)
[2017-02-03] MEDS: ASPIRIN COATED 81 MG TABLET.EC PO SCH (10:05)
[2017-02-03] MEDS: COLLAGENASE CLOSTRIDIUM HIST. 30 GRAMS TUBE TP SCH (10:05)
[2017-02-03] MEDS: FUROSEMIDE 40 MG TABLET (FP) PO SCH (10:05)
--- NOTE | 2017-02-03 14:48 | PN ---
Progress Note, Physician History of Present Illness: stable doing well no new issues wound healing well drainage still present from the rt leg - Current Medication List Current Medications: Active Medications Amoxicillin/Clavulanate Potassium (Augmentin - 500mg Tablet) 1 tab PO BID@0800, 1730 [facility] Last Admin: 02/03/17 08:20 Dose: 1 tab Aspirin (Ecotrin -) 81 mg PO DAILY [facility] Last Admin: 02/03/17 10:05 Dose: 81 mg Atorvastatin Calcium (Lipitor -) 40 mg PO HS [facility] Last Admin: 02/02/17 21:51 Dose: 40 mg Collagenase (Santyl -) 1 applic TP DAILY [facility] Last Admin: 02/03/17 10:05 Dose: 1 applic Furosemide (Lasix -) 40 mg PO DAILY [facility] Last Admin: 02/03/17 10:05 Dose: 40 mg Levofloxacin (Levaquin) 750 mg PO DAILY@0600 [facility] Last Admin: 02/03/17 05:48 Dose: 750 mg Levothyroxine Sodium (Synthroid -) 50 mcg PO AM [facility] Last Admin: 02/03/17 06:08 Dose: 50 mcg Multivitamins/Minerals/Vitamin C (Tab-A-Vit -) 1 tab PO DAILY [facility] Last Admin: 02/03/17 10:05 Dose: 1 tab - Objective Vital Signs: Vital Signs Temperature 97.3 F L 02/03/17 08:41 Pulse Rate 68 02/03/17 08:41 Respiratory Rate 18 02/03/17 08:41 Blood Pressure 114/55 02/03/17 08:41 O2 Sat by Pulse Oximetry (%) 100 02/03/17 09:00 Constitutional: Yes: No Distress, Calm Cardiovascular: Yes: Regular Rate and Rhythm Respiratory: Yes: Regular, CTA Bilaterally Gastrointestinal: Yes: Normal Bowel Sounds, Soft Musculoskeletal: Yes: Other Extremities: Yes: Other (swelling and erythema of the rt leg with draiange improving left leg dry) Integumentary: Yes: Erythema (improved) Wound/Incision: Yes: Clean/Dry, Dressing Removed (wounds looked at) Neurological: Yes: Alert, Oriented Psychiatric: Yes: Alert, Oriented Labs: CBC, BMP 02/02/17 06:10 02/02/17 06:10 INR, PTT INR 1.12 (0.82-1.09) 01/18/17 12:10 Assessment/Plan Bilateral lower ext lymphedema with weeping ulcers. patient with cellulitis of the rt leg open wounds both legs plan continue abx continue wound care continue dsg patient to continue oral abx for 2 weeks more and then reevalaute
== END 2017-02-03 15:56 | DRG 383 ==
LOC: JER 11:05 → JERBED 15:16 → J8W 01-19 14:20
PROVIDERS: ADMIT Internal Medicine; ATTEND Internal Medicine
DX: L03.115 Cellulitis of right lower limb (principal); I89.0 Lymphedema, not elsewhere classified; L97.829 Non-pressure chronic ulcer of other part of left lower leg with unspecified severity; L97.819 Non-pressure chronic ulcer of other part of right lower leg with unspecified severity; E11.9 Type 2 diabetes mellitus without complications; E03.9 Hypothyroidism, unspecified; E78.5 Hyperlipidemia, unspecified; E66.01 Morbid (severe) obesity due to excess calories; Z68.41 Body mass index [BMI] 40.0-44.9, adult; I25.10 Atherosclerotic heart disease of native coronary artery without angina pectoris; Z98.61 Coronary angioplasty status; Z87.891 Personal history of nicotine dependence
CPT/HCPCS: 36415; 71010-TC; 80053; 81003; 81015; 82550; 83036; 83605; 84443; 84484; 85025; 85610; 85651; 85730; 86140; 86850; 86900; 86901; 87040; 87070; 87077; 87086; 87186; 87205; 93005; 93010; 93970-TC; 97116-GP; 97162-GP; 99284-25; G0480

== ENCOUNTER 2022-08-04 12:57 | Emergency (ER) | payer OTHER ==
[2022-08-04 13:19] VITALS: BP 115/69; PULSE 57; RESP 16; TEMP 98.6; BMI 41.0
[2022-08-04] MEDS ORDERED: DIPHTH,PERTUSS(ACELL),TET 0.5 ML DISP.SYRIN IM ONE ×2 (14:25→14:53)
[2022-08-04] MEDS ORDERED: AMOX TR/POT CLAV 875MG/125MG TABLETS (FP) PO ONE (16:09)
[2022-08-04] MEDS ORDERED: AMOX TR/POT CLAV 875MG/125MG TABLETS (FP) ONE (16:27)
== END 2022-08-04 19:21 | disposition home or self-care (01) ==
LOC: JERFT 12:57 → JER 12:57 → JERFT 19:21
PROC: 3E0234Z Introduction of Serum, Toxoid and Vaccine into Muscle, Percutaneous Approach (ICD-10-PCS; principal; 2022-08-04)
DX: S91.332A Puncture wound without foreign body, left foot, initial encounter (principal); W25.XXXA Contact with sharp glass, initial encounter
CPT/HCPCS: 73610-TC-LT-FY; 73630-TC-LT; 90471; 90715; 99284-25

== ENCOUNTER 2024-02-04 01:37 | Inpatient (IN) | payer OTHER ==
[2024-02-04 02:51] LABS: HEMATOCRIT 36.9 % (35.4-49); MCH 28.9 pg (25.7-33.7); MCHC 32.6 g/dl (32.0-35.9); MEAN CELL VOLUME 88.5 fl (80-96); MEAN PLT VOLUME 7.9 fl (7.5-11.1); PLATELET COUNT 221 10^3/uL (134-434); RBC 4.17 M/mm3 (4.00-5.60); RDW 16.8 % (11.9-15.9); WHITE BLOOD COUNT 21.8 K/mm3 (4.0-10.0)
[2024-02-04 03:13] LABS: POTASSIUM 3.8 mmol/L (3.5-5.1)
[2024-02-04 03:15] LABS: CALCIUM 9.3 mg/dL (8.5-10.1)
[2024-02-04 03:16] LABS: ALBUMIN 3.4 g/dl (3.4-5.0); BLOOD UREA NITROGEN 21.4 mg/dL (7-18)
[2024-02-04 03:18] LABS: CREATININE 1.4 mg/dL (0.55-1.3)
[2024-02-04 03:20] LABS: BILIRUBIN,TOTAL 0.6 mg/dL (0.2-1); TOT PROT 7.7 g/dl (6.4-8.2)
[2024-02-04] MEDS ORDERED: ACETAMINOPHEN INJECTION 100 ML IVPB ONE (03:46)
[2024-02-04] MEDS ORDERED: PIPERACILLIN/TAZOB 4.5 GM 4.5 GM/100 ML BAG IVPB ONE (03:47)
[2024-02-04 03:51] LABS: ANISOCYTOSIS 1+; MACROCYTOSIS 1+
[2024-02-04] MEDS: SODIUM CHLORIDE 0.9% 500 ML INFUS.BAG IV ONE (04:14)
[2024-02-04] MEDS: ACETAMINOPHEN 1000 MG/100 ML BAG IVPB ONE (04:14)
[2024-02-04 04:17] LABS: VENOUS BASE EXCESS 3.1 mmol/L (-2-2); VENOUS O2 SATURATION 35.3 % (70-80); VENOUS PCO2 44.5 mmHg (38-52); VENOUS PH 7.419 (7.310-7.410)
[2024-02-04] MEDS: PIPERACILLIN/TAZOB 4.5 GM 4.5 GM in DEXTROSE 5%-WATER 100 ML IVPB ONE (04:22)
[2024-02-04] MEDS ORDERED: AZITHROMYCIN IVPB 500 MG/250 ML BAG IVPB ONE (04:41)
[2024-02-04 04:47] LABS: LACTIC ACID 4.4 mmol/L (0.4-2.0)
[2024-02-04 04:55] LABS: EPI CELLS 6 /uL (0-25.1); HYALINE CASTS 0 /uL (0-3.1); PH,URINE 6.5 (5.0-8.0); URINE APPEARANCE CLEAR; URINE BACTERIA 0 /uL (0-1359); URINE BILIRUBIN NEGATIVE (NEGATIVE); URINE COLOR YELLOW; URINE GLUCOSE (UA) NEGATIVE (NEGATIVE); URINE KETONE TRACE (NEGATIVE); URINE LEUK ESTERASE NEGATIVE (NEGATIVE); URINE NITRITE NEGATIVE (NEGATIVE); URINE PROTEIN 2+ (NEGATIVE); URINE RBC 18 /uL (0-23.9); URINE WBC 1 /uL (0-25.8)
[2024-02-04] MEDS: AZITHROMYCIN IVPB 500 MG in DEXTROSE 5%-WATER - 250 ML IVPB ONE (05:52)
[2024-02-04 09:34] VITALS: BMI 50.1
[2024-02-04] MEDS: VANCOMYCIN/WATER 1250 MG 1,250 MG/250 ML BAG IVPB SCH (10:55)
[2024-02-04] MEDS: PIPERACILLIN/TAZOB 4.5 GM 4.5 GM in DEXTROSE 5%-WATER 100 ML IVPB SCH ×2 (10:55→17:42)
[2024-02-04] MEDS: NYSTATIN POWDER 100,000 UNITS/GM - 15 GM TOPICAL POWDER TP SCH (14:41)
[2024-02-04] MEDS ORDERED: CEFTRIAXONE 1 GM in DEXTROSE 5%-WATER - 50 ML IVPB SCH (15:00)
[2024-02-04] MEDS: CEFTRIAXONE 1 GM in DEXTROSE 5%-WATER - 50 ML IVPB SCH (17:42)
[2024-02-04] MEDS: VANCOMYCIN 1,000 MG in DEXTROSE 5%-WATER - 250 ML IVPB SCH (17:43)
[2024-02-04] MEDS: PIPERACILLIN/TAZOB 3.375 GM 3.375 GM in DEXTROSE 5%-WATER - 50 ML IVPB SCH ×2 (17:44→17:49)
[2024-02-04] MEDS: ACETAMINOPHEN 325 MG TABLET (FP) PO PRN (17:45)
[2024-02-04] MEDS ORDERED: PIPERACILLIN/TAZOB 3.375 GM 3.375 GM in DEXTROSE 5%-WATER - 50 ML IVPB SCH (18:00)
[2024-02-04] MEDS: ATORVASTATIN CA 40 MG TABLET (FP) PO SCH (21:36)
[2024-02-05] MEDS ORDERED: VANCOMYCIN/WATER 1250 MG 1,250 MG/250 ML BAG IVPB SCH (05:00)
[2024-02-05] MEDS: LEVOTHYROXINE NA 50 MCG TABLET (FP) PO SCH (06:25)
[2024-02-05 07:26] LABS: HEMATOCRIT 33.3 % (35.4-49); MCH 29.3 pg (25.7-33.7); MCHC 33.1 g/dl (32.0-35.9); MEAN CELL VOLUME 88.6 fl (80-96); MEAN PLT VOLUME 8.2 fl (7.5-11.1); PLATELET COUNT 175 10^3/uL (134-434); RBC 3.76 M/mm3 (4.00-5.60); RDW 16.9 % (11.9-15.9); WHITE BLOOD COUNT 13.2 K/mm3 (4.0-10.0)
[2024-02-05 07:34] LABS: POTASSIUM 3.3 mmol/L (3.5-5.1)
[2024-02-05 07:41] LABS: CALCIUM 8.4 mg/dL (8.5-10.1)
[2024-02-05 07:42] LABS: BLOOD UREA NITROGEN 15.8 mg/dL (7-18); MAGNESIUM 2.2 mg/dL (1.8-2.4)
[2024-02-05 07:46] LABS: TOT PROT 6.5 g/dl (6.4-8.2)
[2024-02-05 07:48] LABS: BILIRUBIN,TOTAL 0.9 mg/dL (0.2-1)
[2024-02-05 07:50] LABS: ALBUMIN 2.6 g/dl (3.4-5.0)
[2024-02-05] MEDS: POTASSIUM CHLORIDE ORAL LIQUID 20 MEQ/15 ML PO ONE (09:02)
[2024-02-05] MEDS: ASPIRIN 81 MG CHEWABLE TABLETS PO SCH (09:02)
[2024-02-05] MEDS ORDERED: VANCOMYCIN/WATER FOR INJ (PEG) 1,000 MG/200 ML BAG IVPB SCH (10:00)
[2024-02-05] MEDS ORDERED: AZITHROMYCIN IVPB 500 MG/250 ML BAG IVPB SCH (10:00)
[2024-02-05] MEDS: ENOXAPARIN NA (PORCINE) 30 MG/0.3 ML DISP.SYRIN SQ SCH (13:03)
[2024-02-05] MEDS: POTASSIUM CHLORIDE TABS 20 MEQ TABLET.ER (FP) PO ONE (20:47)
[2024-02-05] MEDS: VANCOMYCIN 1,000 MG in DEXTROSE 5%-WATER - 250 ML IVPB ONE (20:47)
[2024-02-07 07:02] LABS: BASO % 0.4 % (0-2.0); EOS % 4.1 % (0-4.5); HEMATOCRIT 32.4 % (35.4-49); HEMOGLOBIN 10.5 GM/dL (11.7-16.9); LYMPH % 13.2 % (8-40); MCHC 32.5 g/dl (32.0-35.9); MEAN CELL VOLUME 89.2 fl (80-96); MEAN PLT VOLUME 8.3 fl (7.5-11.1); MONO % 6.8 % (3.8-10.2); NEUT % 75.5 % (42.8-82.8); PLATELET COUNT 164 10^3/uL (134-434); RBC 3.63 M/mm3 (4.00-5.60); RDW 16.6 % (11.9-15.9); WHITE BLOOD COUNT 6.3 K/mm3 (4.0-10.0)
[2024-02-07 07:15] LABS: POTASSIUM 3.4 mmol/L (3.5-5.1)
[2024-02-07 07:22] LABS: ALBUMIN 2.1 g/dl (3.4-5.0); BLOOD UREA NITROGEN 12.2 mg/dL (7-18)
[2024-02-07 07:25] LABS: CREATININE 0.7 mg/dL (0.55-1.3); TOT PROT 5.9 g/dl (6.4-8.2)
[2024-02-07 07:26] LABS: BILIRUBIN,TOTAL 0.6 mg/dL (0.2-1)
[2024-02-07] MEDS: POTASSIUM CHLORIDE TABS 20 MEQ TABLET.ER (FP) PO SCH (10:10)
[2024-02-07] MEDS: CEFTRIAXONE 2 GM in DEXTROSE 5%-WATER 100 ML IVPB SCH (10:10)
[2024-02-07] MEDS: ENOXAPARIN NA (PORCINE) 30 MG/0.3 ML DISP.SYRIN SQ SCH (22:40)
[2024-02-07] MEDS: ATORVASTATIN CA 40 MG TABLET (FP) PO SCH (22:41)
[2024-02-08 02:10] VITALS: RESP 18
[2024-02-08] MEDS: LEVOTHYROXINE NA 50 MCG TABLET (FP) PO SCH (06:09)
[2024-02-08 09:33] LABS: BASO % 0.5 % (0-2.0); EOS % 4.3 % (0-4.5); HEMATOCRIT 33.5 % (35.4-49); LYMPH % 12.9 % (8-40); MCH 29.2 pg (25.7-33.7); MCHC 32.9 g/dl (32.0-35.9); MEAN CELL VOLUME 88.7 fl (80-96); MEAN PLT VOLUME 7.9 fl (7.5-11.1); MONO % 6.8 % (3.8-10.2); NEUT % 75.5 % (42.8-82.8); PLATELET COUNT 193 10^3/uL (134-434); RBC 3.77 M/mm3 (4.00-5.60); RDW 16.7 % (11.9-15.9); WHITE BLOOD COUNT 6.4 K/mm3 (4.0-10.0)
[2024-02-08 09:49] LABS: POTASSIUM 3.9 mmol/L (3.5-5.1)
[2024-02-08 09:54] LABS: CALCIUM 8.7 mg/dL (8.5-10.1)
[2024-02-08 09:55] LABS: BLOOD UREA NITROGEN 10.3 mg/dL (7-18)
[2024-02-08 09:58] LABS: CREATININE 0.7 mg/dL (0.55-1.3)
[2024-02-08] MEDS: ASPIRIN 81 MG CHEWABLE TABLETS PO SCH (10:59)
[2024-02-08] MEDS: ENOXAPARIN NA (PORCINE) 40 MG/0.4 ML DISP.SYRIN SQ SCH (10:59)
[2024-02-08] MEDS: NYSTATIN POWDER 100,000 UNITS/GM - 15 GM TOPICAL POWDER TP SCH (11:00)
[2024-02-08] MEDS: ACETAMINOPHEN 325 MG TABLET (FP) PO PRN (13:40)
[2024-02-10 14:36] VITALS: BP 124/64; PULSE 70; TEMP 98.2
== END 2024-02-10 19:55 | DRG 871 ==
LOC: JER 01:37 → JERBED 05:15 → J2W 06:11 → J8W 02-07 17:06
PROVIDERS: ADMIT Internal Medicine; ATTEND Internal Medicine
PROC: 02HV33Z Insertion of Infusion Device into Superior Vena Cava, Percutaneous Approach (ICD-10-PCS; principal; 2024-02-10)
PROC: B518ZZA Fluoroscopy of Superior Vena Cava, Guidance (ICD-10-PCS; 2024-02-10)
DX: A41.89 Other specified sepsis (principal); J69.0 Pneumonitis due to inhalation of food and vomit; L03.116 Cellulitis of left lower limb; J98.11 Atelectasis; Z68.43 Body mass index [BMI] 50.0-59.9, adult; M86.672 Other chronic osteomyelitis, left ankle and foot; E78.00 Pure hypercholesterolemia, unspecified; G47.33 Obstructive sleep apnea (adult) (pediatric); I25.10 Atherosclerotic heart disease of native coronary artery without angina pectoris; I10 Essential (primary) hypertension; L89.152 Pressure ulcer of sacral region, stage 2; E03.9 Hypothyroidism, unspecified; E66.01 Morbid (severe) obesity due to excess calories; E87.6 Hypokalemia; I35.1 Nonrheumatic aortic (valve) insufficiency; B95.4 Other streptococcus as the cause of diseases classified elsewhere; I89.0 Lymphedema, not elsewhere classified; W06.XXXA Fall from bed, initial encounter; Y92.092 Bedroom in other non-institutional residence as the place of occurrence of the external cause; Y99.9 Unspecified external cause status; Z95.5 Presence of coronary angioplasty implant and graft
CPT/HCPCS: 0241U-QW; 36415; 36569; 70450-TC; 71045-TC-FY; 72125-TC; 72170-TC-FY; 80048; 80053; 81003; 82550; 82553; 82803; 82962; 83605; 83735; 84484; 85025; 85027; 87040; 87077; 87081; 87086; 87186; 87635; 93005; 93010; 94010; 97116-GP; 97161-GP; 99285-25; J0131

== ENCOUNTER 2024-09-19 18:11 | Inpatient (IN) | payer OTHER ==
[2024-09-19 19:13] LABS: VENOUS BASE EXCESS 1.5 mmol/L (-2-2); VENOUS O2 SATURATION 34.6 % (70-80); VENOUS PCO2 44.8 mmHg (38-52); VENOUS PH 7.395 (7.310-7.410)
[2024-09-19 19:16] LABS: HEMATOCRIT 39.3 % (35.4-49); HEMOGLOBIN 12.7 GM/dL (11.7-16.9); MCH 28.9 pg (25.7-33.7); MCHC 32.3 g/dl (32.0-35.9); MEAN CELL VOLUME 89.5 fl (80-96); MEAN PLT VOLUME 8.1 fl (7.5-11.1); PLATELET COUNT 141 10^3/uL (134-434); RBC 4.39 M/mm3 (4.00-5.60); RDW 16.6 % (11.9-15.9); WHITE BLOOD COUNT 9.5 K/mm3 (4.0-10.0)
[2024-09-19] MEDS ORDERED: PIPERACILLIN/TAZOB 4.5 GM 4.5 GM/100 ML BAG IVPB ONE (19:17)
[2024-09-19] MEDS ORDERED: ACETAMINOPHEN INJECTION 100 ML ONE (19:17)
[2024-09-19 19:26] LABS: INR 1.14 (0.83-1.09); PROTHROMBIN TIME (PATIENT) 12.5 SEC (9.7-13.0)
[2024-09-19] MEDS: ACETAMINOPHEN 1000 MG/100 ML BAG IVPB ONE (19:26)
[2024-09-19] MEDS: SODIUM CHLORIDE 0.9% 500 ML INFUS.BAG IV ONE ×2 (19:26→23:00)
[2024-09-19] MEDS: PIPERACILLIN/TAZOBACTAM 4.5 GM VIAL IVPB ONE (19:26)
[2024-09-19 19:28] LABS: ACTIVATED PTT 26.4 SECONDS (25.2-36.5)
[2024-09-19 19:45] LABS: POTASSIUM 3.6 mmol/L (3.5-5.1)
[2024-09-19 19:48] LABS: ALBUMIN 3.4 g/dl (3.4-5.0); BLOOD UREA NITROGEN 14.5 mg/dL (7-18); CALCIUM 9.1 mg/dL (8.5-10.1)
[2024-09-19 19:51] LABS: CREATININE 1.2 mg/dL (0.55-1.3)
[2024-09-19 19:53] LABS: BILIRUBIN,TOTAL 0.9 mg/dL (0.2-1); LACTIC ACID 4.2 mmol/L (0.4-2.0)
[2024-09-19 19:54] LABS: TOT PROT 7.1 g/dl (6.4-8.2)
[2024-09-19] MEDS: VANCOMYCIN 1,000 MG in DEXTROSE 5%-WATER - 500 ML IVPB ONE (20:03)
[2024-09-19] MEDS: VANCOMYCIN/WATER 2 GRAMS 2,000 MG/400 ML PIGGYBACK IVPB ONE (20:03)
[2024-09-19] MEDS: VANCOMYCIN 2,000 MG in DEXTROSE 5%-WATER - 250 ML IVPB ONE (20:04)
[2024-09-19 20:22] LABS: ERYTHROCYTE SEDIMENTATION RATE 46 mm/hr (0-20)
[2024-09-19 20:55] LABS: ANISOCYTOSIS 2+; MACROCYTOSIS 0
[2024-09-19 21:43] LABS: N-TERMINAL BNP 703.9 pg/ml (5-125)
[2024-09-19 22:31] LABS: LACTIC ACID 5.3 mmol/L (0.4-2.0)
[2024-09-19] MEDS ORDERED: THIAMINE HCL 200 MG/2 ML VIAL ONE (22:55)
[2024-09-19] MEDS: THIAMINE HCL 200 MG/2 ML VIAL IVPB ONE (23:00)
[2024-09-20 01:39] LABS: LACTIC ACID 5.4 mmol/L (0.4-2.0)
[2024-09-20] MEDS: SODIUM CHLORIDE 0.9% 500 ML INFUS.BAG IV ONE ×2 (01:51→01:52)
[2024-09-20] MEDS ORDERED: ACETAMINOPHEN 325 MG TABLET (FP) PO PRN (02:25)
[2024-09-20] MEDS ORDERED: DOCUSATE SODIUM 100 MG CAPSULE (FP) PO PRN (02:25)
[2024-09-20] MEDS ORDERED: PIPERACILLIN/TAZOB 3.375 GM 3.375 GM/50 ML BAG IVPB ONE ×4 (03:39→22:12)
[2024-09-20] MEDS ORDERED: HEPARIN NA (PORCINE) 5,000 UNITS/ML 1ML VIAL ONE (03:39)
[2024-09-20] MEDS: PIPERACILLIN/TAZOB 3.375 GM 3.375 GM in DEXTROSE 5%-WATER - 50 ML IVPB SCH (03:53)
[2024-09-20] MEDS: LACTATED RINGERS SOLUTION 1,000 ML/1,000 ML INFUS.BAG IV SCH ×2 (05:06→15:34)
[2024-09-20] MEDS ORDERED: guaiFENesin/D-METHORPHAN HB 10 ML UNIT-DOSE CUPS PO PRN (06:06)
[2024-09-20 06:20] LABS: EPI CELLS 5 /uL (0-25.1); HYALINE CASTS 1 /uL (0-3.1); URINE APPEARANCE CLEAR; URINE BACTERIA 2 /uL (0-1359); URINE BILIRUBIN NEGATIVE (NEGATIVE); URINE COLOR YELLOW; URINE GLUCOSE (UA) NEGATIVE (NEGATIVE); URINE KETONE NEGATIVE (NEGATIVE); URINE LEUK ESTERASE NEGATIVE (NEGATIVE); URINE NITRITE NEGATIVE (NEGATIVE); URINE PROTEIN TRACE (NEGATIVE); URINE RBC 10 /uL (0-23.9); URINE UROBILINOGEN 0.2 mg/dL (0.2-1.0); URINE WBC 9 /uL (0-25.8)
[2024-09-20] MEDS: LEVOTHYROXINE NA 50 MCG TABLET (FP) PO SCH (08:00)
[2024-09-20] MEDS ORDERED: VANCOMYCIN PREMIX 1.75 GM 1,750 MG/350 ML PIGGYBACK IVPB SCH (08:00)
[2024-09-20] MEDS ORDERED: LEVOTHYROXINE NA 50 MCG TABLET (FP) ONE (08:05)
[2024-09-20] MEDS: INSULIN ASPART SLIDING SCALE (NOVOLOG) 1 VIAL SQ SCH (08:15)
[2024-09-20 08:19] LABS: HEMOGLOBIN 11.7 GM/dL (11.7-16.9); MCH 29.3 pg (25.7-33.7); MCHC 32.4 g/dl (32.0-35.9); MEAN CELL VOLUME 90.5 fl (80-96); MEAN PLT VOLUME 8.5 fl (7.5-11.1); PLATELET COUNT 157 10^3/uL (134-434); RBC 3.98 M/mm3 (4.00-5.60); RDW 17.1 % (11.9-15.9); WHITE BLOOD COUNT 16.9 K/mm3 (4.0-10.0)
[2024-09-20 08:20] LABS: POTASSIUM 3.5 mmol/L (3.5-5.1)
[2024-09-20 08:31] LABS: CALCIUM 8.2 mg/dL (8.5-10.1)
[2024-09-20 08:32] LABS: ALBUMIN 2.8 g/dl (3.4-5.0); BLOOD UREA NITROGEN 15.1 mg/dL (7-18)
[2024-09-20] MEDS: VANCOMYCIN PREMIX 1.75 GM 1,750 MG/350 ML PIGGYBACK IVPB SCH (08:32)
[2024-09-20 08:34] LABS: CREATININE 1.3 mg/dL (0.55-1.3)
[2024-09-20 08:37] LABS: TOT PROT 6.4 g/dl (6.4-8.2)
[2024-09-20] MEDS ORDERED: LACTATED RINGERS SOLUTION 1,000 ML/1,000 ML INFUS.BAG IV SCH (09:15)
[2024-09-20 09:27] LABS: MAGNESIUM 1.7 mg/dL (1.8-2.4)
[2024-09-20] MEDS: PIPERACILLIN/TAZOB 3.375 GM 3.375 GM/50 ML BAG IVPB SCH (10:00)
[2024-09-20] MEDS ORDERED: ENOXAPARIN NA (PORCINE) 40 MG/0.4 ML DISP.SYRIN SQ ONE ×2 (10:02→22:12)
[2024-09-20] MEDS: AMMONIUM LACTATE 12% LOTION 225 GM BOTTLE TP SCH (10:44)
[2024-09-20] MEDS: ENOXAPARIN NA (PORCINE) 40 MG/0.4 ML DISP.SYRIN SQ SCH (10:45)
[2024-09-20] MEDS: MAGNESIUM OXIDE 400 MG TABLET (FP) PO SCH (10:45)
[2024-09-20 12:25] LABS: LACTIC ACID 3.1 mmol/L (0.4-2.0)
[2024-09-20] MEDS ORDERED: MAGNESIUM OXIDE 400 MG TABLET (FP) ONE (13:53)
[2024-09-20] MEDS ORDERED: HEPARIN NA (PORCINE) 5,000 UNITS/ML 1ML VIAL SQ SCH (14:00)
[2024-09-20] MEDS ORDERED: MAGNESIUM 1GM/D5W - 1 GM/100 ML IVPB IVPB ONE (15:26)
[2024-09-20] MEDS: MAGNESIUM 1GM/D5W 100ML - 100 ML IVPB IVPB ONE (15:28)
[2024-09-20] MEDS ORDERED: PIPERACILLIN/TAZOB 4.5 GM 4.5 GM/100 ML BAG IVPB SCH (21:55)
[2024-09-20] MEDS ORDERED: CLINDAMYCIN 600MG PREMIX IVPB 600 MG/50 ML BAG IVPB ONE (22:27)
[2024-09-20] MEDS: CLINDAMYCIN 600MG PREMIX IVPB 600 MG/50 ML BAG IVPB SCH (22:28)
[2024-09-21] MEDS ORDERED: PIPERACILLIN/TAZOB 4.5 GM 4.5 GM/100 ML BAG IVPB ONE ×2 (03:05→08:10)
[2024-09-21] MEDS: PIPERACILLIN/TAZOB 4.5 GM 4.5 GM in DEXTROSE 5%-WATER 100 ML IVPB SCH ×2 (03:06→16:07)
[2024-09-21] MEDS ORDERED: LEVOTHYROXINE NA 50 MCG TABLET (FP) ONE (06:47)
[2024-09-21] MEDS ORDERED: CLINDAMYCIN 600MG PREMIX IVPB 600 MG/50 ML BAG IVPB ONE (06:47)
[2024-09-21 07:19] LABS: HEMATOCRIT 35.1 % (35.4-49); MCH 28.5 pg (25.7-33.7); MCHC 31.3 g/dl (32.0-35.9); MEAN CELL VOLUME 91.1 fl (80-96); MEAN PLT VOLUME 8.5 fl (7.5-11.1); PLATELET COUNT 128 10^3/uL (134-434); RBC 3.85 M/mm3 (4.00-5.60); RDW 17.3 % (11.9-15.9); WHITE BLOOD COUNT 11.4 K/mm3 (4.0-10.0)
[2024-09-21 07:36] LABS: CHLORIDE 107 mmol/L (98-107); POTASSIUM 3.3 mmol/L (3.5-5.1); SODIUM 141 mmol/L (136-145)
[2024-09-21 07:42] LABS: CALCIUM 8.4 mg/dL (8.5-10.1)
[2024-09-21 07:43] LABS: ALBUMIN 2.5 g/dl (3.4-5.0); ANION GAP 9 mmol/L (4-13); CO2 25 mmol/L (21-32); MAGNESIUM 2.2 mg/dL (1.8-2.4)
[2024-09-21 07:44] LABS: GLUCOSE,RANDOM 90 mg/dL (74-106)
[2024-09-21 07:45] LABS: SGPT/ALT 50 U/L (13-61)
[2024-09-21 07:46] LABS: CREATININE 0.8 mg/dL (0.55-1.3); PHOSPHOROUS 2.2 mg/dL (2.5-4.9)
[2024-09-21 07:47] LABS: BILIRUBIN,TOTAL 0.7 mg/dL (0.2-1); TOT PROT 5.7 g/dl (6.4-8.2)
[2024-09-21 07:48] LABS: ALK PHOS 64 U/L (45-117); SGOT/AST 156 U/L (15-37)
[2024-09-21] MEDS ORDERED: MAGNESIUM OXIDE 400 MG TABLET (FP) ONE (09:07)
[2024-09-21] MEDS ORDERED: ENOXAPARIN NA (PORCINE) 40 MG/0.4 ML DISP.SYRIN SQ ONE (09:08)
[2024-09-21] MEDS: POTASSIUM CHLORIDE ORAL LIQUID 20 MEQ/15 ML PO ONE (11:05)
[2024-09-21] MEDS ORDERED: ACETAMINOPHEN 325 MG TABLET (FP) PO PRN (13:33)
[2024-09-21] MEDS ORDERED: DOCUSATE SODIUM 100 MG CAPSULE (FP) PO PRN (13:33)
[2024-09-21 14:16] VITALS: BMI 41.1
[2024-09-21] MEDS: LACTATED RINGERS SOLUTION 1,000 ML/1,000 ML INFUS.BAG IV SCH (14:35)
[2024-09-21] MEDS: CLINDAMYCIN 600MG PREMIX IVPB 600 MG/50 ML BAG IVPB SCH (14:39)
[2024-09-21] MEDS: VANCOMYCIN PREMIX 1.75 GM 1,750 MG/350 ML PIGGYBACK IVPB SCH (20:10)
[2024-09-21 20:19] LABS: BASO % 0.2 % (0-2.0); EOS % 1.3 % (0-4.5); HEMATOCRIT 32.8 % (35.4-49); HEMOGLOBIN 10.7 GM/dL (11.7-16.9); LYMPH % 7.3 % (8-40); MCH 29.3 pg (25.7-33.7); MCHC 32.6 g/dl (32.0-35.9); MEAN CELL VOLUME 89.7 fl (80-96); MEAN PLT VOLUME 8.7 fl (7.5-11.1); MONO % 4.9 % (3.8-10.2); NEUT % 86.3 % (42.8-82.8); PLATELET COUNT 113 10^3/uL (134-434); RBC 3.66 M/mm3 (4.00-5.60); RDW 17.1 % (11.9-15.9); WHITE BLOOD COUNT 7.8 K/mm3 (4.0-10.0)
[2024-09-21] MEDS: ENOXAPARIN NA (PORCINE) 40 MG/0.4 ML DISP.SYRIN SQ SCH (21:31)
[2024-09-21] MEDS: AMMONIUM LACTATE 12% LOTION 225 GM BOTTLE TP SCH (22:54)
[2024-09-22] MEDS: guaiFENesin/D-METHORPHAN HB 10 ML UNIT-DOSE CUPS PO PRN (02:21)
[2024-09-22] MEDS ORDERED: PIPERACILLIN/TAZOB 3.375 GM 3.375 GM/50 ML BAG IVPB SCH (03:00)
[2024-09-22] MEDS: LEVOTHYROXINE NA 50 MCG TABLET (FP) PO SCH (06:40)
[2024-09-22] MEDS: MAGNESIUM OXIDE 400 MG TABLET (FP) PO SCH (09:13)
[2024-09-22] MEDS: POTASSIUM CHLORIDE ORAL LIQUID 20 MEQ/15 ML PO ONE (11:38)
[2024-09-22] MEDS: CEFTRIAXONE 2 GM-D5W BAG 2 GM/50 ML BAG IVPB SCH (14:41)
[2024-09-23 09:53] LABS: BASO % 0.6 % (0-2.0); HEMATOCRIT 33.5 % (35.4-49); HEMOGLOBIN 10.9 GM/dL (11.7-16.9); LYMPH % 13.7 % (8-40); MCH 29.2 pg (25.7-33.7); MCHC 32.7 g/dl (32.0-35.9); MEAN CELL VOLUME 89.2 fl (80-96); MONO % 7.9 % (3.8-10.2); NEUT % 73.8 % (42.8-82.8); PLATELET COUNT 132 10^3/uL (134-434); RBC 3.75 M/mm3 (4.00-5.60); RDW 16.5 % (11.9-15.9); WHITE BLOOD COUNT 4.5 K/mm3 (4.0-10.0)
[2024-09-23 10:23] LABS: POTASSIUM 3.3 mmol/L (3.5-5.1)
[2024-09-23 10:24] LABS: CALCIUM 8.4 mg/dL (8.5-10.1)
[2024-09-23 10:25] LABS: BLOOD UREA NITROGEN 12.3 mg/dL (7-18)
[2024-09-23 10:28] LABS: CREATININE 0.7 mg/dL (0.55-1.3)
[2024-09-23] MEDS: POTASSIUM CHLORIDE ORAL LIQUID 20 MEQ/15 ML PO ONE (14:04)
[2024-09-24 09:41] LABS: BASO % 0.6 % (0-2.0); EOS % 4.8 % (0-4.5); HEMATOCRIT 32.4 % (35.4-49); HEMOGLOBIN 10.5 GM/dL (11.7-16.9); LYMPH % 17.3 % (8-40); MCH 29.1 pg (25.7-33.7); MCHC 32.3 g/dl (32.0-35.9); MEAN CELL VOLUME 90.1 fl (80-96); MEAN PLT VOLUME 7.9 fl (7.5-11.1); MONO % 8.8 % (3.8-10.2); NEUT % 68.5 % (42.8-82.8); PLATELET COUNT 148 10^3/uL (134-434); RDW 16.7 % (11.9-15.9); WHITE BLOOD COUNT 4.5 K/mm3 (4.0-10.0)
[2024-09-24 09:58] LABS: POTASSIUM 3.2 mmol/L (3.5-5.1)
[2024-09-24 10:08] LABS: ALBUMIN 2.4 g/dl (3.4-5.0); BLOOD UREA NITROGEN 10.1 mg/dL (7-18); CALCIUM 8.4 mg/dL (8.5-10.1)
[2024-09-24 10:09] LABS: BILIRUBIN,TOTAL 0.6 mg/dL (0.2-1); TOT PROT 5.7 g/dl (6.4-8.2)
[2024-09-24 10:11] LABS: CREATININE 0.7 mg/dL (0.55-1.3)
[2024-09-24 13:17] LABS: MAGNESIUM 2.1 mg/dL (1.8-2.4)
[2024-09-24 13:20] LABS: PHOSPHOROUS 2.8 mg/dL (2.5-4.9)
[2024-09-24] MEDS: POTASSIUM CHLORIDE ORAL LIQUID 20 MEQ/15 ML PO SCH (14:58)
[2024-09-25 07:35] VITALS: RESP 18
[2024-09-25 14:46] VITALS: BP 133/67; PULSE 66; TEMP 98.2
[2024-09-25 16:14] LABS: CALCIUM 8.8 mg/dL (8.5-10.1)
[2024-09-25 16:15] LABS: BLOOD UREA NITROGEN 11.1 mg/dL (7-18)
[2024-09-25 16:18] LABS: CREATININE 0.7 mg/dL (0.55-1.3)
== END 2024-09-25 21:06 | DRG 872 ==
LOC: JER 18:11 → JERBED 19:32 → J7W 09-21 13:29
PROVIDERS: ADMIT Internal Medicine; ATTEND Internal Medicine
DX: A41.9 Sepsis, unspecified organism (principal); L03.116 Cellulitis of left lower limb; E87.20 Acidosis, unspecified; Z68.41 Body mass index [BMI] 40.0-44.9, adult; E78.5 Hyperlipidemia, unspecified; I25.10 Atherosclerotic heart disease of native coronary artery without angina pectoris; E03.9 Hypothyroidism, unspecified; E87.6 Hypokalemia; G47.33 Obstructive sleep apnea (adult) (pediatric); I87.2 Venous insufficiency (chronic) (peripheral); E66.01 Morbid (severe) obesity due to excess calories; I11.0 Hypertensive heart disease with heart failure; R73.03 Prediabetes; L89.156 Pressure-induced deep tissue damage of sacral region; B95.2 Enterococcus as the cause of diseases classified elsewhere; B96.89 Other specified bacterial agents as the cause of diseases classified elsewhere
CPT/HCPCS: 0241U-QW; 36415; 70450-TC; 71045-TC-FY; 71275-TC; 73590-TC-LT-FY; 73630-TC-LT; 76705-TC; 80048; 80053; 81003; 82803; 82962; 83036; 83605; 83735; 83880; 84100; 84443; 84484; 85025; 85610; 85651; 85730; 86140; 86850; 86900; 86901; 87040; 87086; 87186; 93005; 93010; 93970-TC; 97116-GP; 97161-GP; 99285-25; J0131; J3370; Q9967